=== PATIENT | female | born 1950 | race Caucasian/White ===

== ENCOUNTER → 2016-03-17 | Outpatient (CLI) | payer BC ==
[2016-03-17 07:45] LABS: ALT 46 U/L (9-52); AST 30 U/L (14-36); Alkaline Phosphatase 63 U/L (38-126); Anion Gap 9 mmol/L; Blood Urea Nitrogen 14 mg/dL (7-17); Calcium 9.4 mg/dL (8.4-10.2); Carbon Dioxide 27 mmol/L (22-30); Chloride 103 mmol/L (98-107); Cholesterol 182 mg/dL (<200); Creatine Kinase 38 U/L (30-135); Glucose 93 mg/dL (74-99); HDL Cholesterol 59 mg/dL (40-60); Non-African American GFR(MDRD) >60 (>60 ml/min/1.73 sqM); Potassium 4.4 mmol/L (3.5-5.1); Sodium 139 mmol/L (137-145); Total Bilirubin 0.9 mg/dL (0.2-1.3); Total Protein 7.3 g/dL (6.3-8.2); Triglycerides 114 mg/dL (<150)
[2016-03-17 07:56] LABS: Basophils % (A) 1 %; CH 30.9; CHCM 32.4; Eosinophils # (A) 0.1 k/uL (0-0.7); Eosinophils % (A) 1 %; HCT 40.7 % (34.0-46.0); HDW 1.94; HGB 12.9 gm/dL (11.4-16.0); Luc # (Auto) 0.15; Luc % (Auto) 3; Lymphocytes # (A) 1.7 k/uL (1.0-4.8); Lymphocytes % (A) 37 %; MCH 30.4 pg (25.0-35.0); MCHC 31.7 g/dL (31.0-37.0); MCV 95.8 fL (80.0-100.0); Mean Platelet Volume 7.3; Monocytes # (A) 0.3 k/uL (0-1.0); Monocytes % (A) 7 %; Neutrophils # (A) 2.3 k/uL (1.3-7.7); Neutrophils % (A) 51 %; RBC 4.25 m/uL (3.80-5.40); RDW 12.8 % (11.5-15.5); WBC 4.5 k/uL (3.8-10.6); WBC (Perox) 4.86
[2016-03-17 08:03] LABS: Appearance,Urine Clear (Clear); Bacteria,Urine Rare /hpf; Bilirubin,Urine Negative (Negative); Glucose,Urine (UA) Negative (Negative); Ketones,Urine Negative (Negative); Leukocyte Esterase,Urine Large (Negative); Nitrite,Urine Negative (Negative); PH, Urine 7.5 (5.0-8.0); Particle Count 2453; Protein,Urine Negative (Negative); Specific Gravity,Urine 1.011 (1.001-1.035); Squamous Epithelial Cell,Urine 1 /hpf (0-4); UA Billing (MACRO vs. MICRO) MICRO; Urobilinogen,Urine <2.0 mg/dL (<2.0); WBC,Urine 14 /hpf (0-5)
[2016-03-17 08:22] LABS: Hemoglobin A1C 5.3 % (4.2-6.1)
== END | disposition home or self-care (01) ==
LOC: LABWHC1 06:51
PROVIDERS: ATTEND Internal Medicine
DX: E55.9 Vitamin D deficiency, unspecified (principal); I10 Essential (primary) hypertension; E78.5 Hyperlipidemia, unspecified; R79.9 Abnormal finding of blood chemistry, unspecified; E03.9 Hypothyroidism, unspecified; R35.0 Frequency of micturition
CPT/HCPCS: 36415; 80053; 80061; 81001; 82306; 82550; 83036; 84439; 84443; 85025

== ENCOUNTER → 2016-04-12 | Outpatient (CLI) | payer BC ==
--- NOTE | 2016-04-12 11:03 | XR ---
EXAMINATION TYPE: XR chest 2V DATE OF EXAM: 04/12/2016 10:39 AM COMPARISON: 07/26/2013 TECHNIQUE: PA and lateral views submitted. HISTORY: Cough FINDINGS: The lungs are clear and there is no pneumothorax, pleural effusion, or focal pneumonia. Hypertrophic and degenerative change of the spine. IMPRESSION: 1. No acute process.
== END | disposition home or self-care (01) ==
LOC: RADXRMAIN 10:29
PROVIDERS: ATTEND Internal Medicine
DX: R05 Cough (principal)
CPT/HCPCS: 71020

== ENCOUNTER → 2016-09-09 | Outpatient (CLI) | payer MEDICARE ==
[2016-09-09 07:57] LABS: Appearance,Urine Clear (Clear); Bilirubin,Urine Negative (Negative); Glucose,Urine (UA) Negative (Negative); Ketones,Urine Negative (Negative); Leukocyte Esterase,Urine Large (Negative); Nitrite,Urine Negative (Negative); PH, Urine 7.5 (5.0-8.0); Particle Count 1636; Protein,Urine Negative (Negative); RBC,Urine 1 /hpf (0-5); Specific Gravity,Urine 1.008 (1.001-1.035); Squamous Epithelial Cell,Urine <1 /hpf (0-4); UA Billing (MACRO vs. MICRO) MICRO; Urobilinogen,Urine <2.0 mg/dL (<2.0); WBC,Urine 21 /hpf (0-5)
[2016-09-09 07:59] LABS: Basophils # (A) 0.1 k/uL (0-0.2); Basophils % (A) 1 %; CH 31.2; CHCM 32.9; Eosinophils # (A) 0.1 k/uL (0-0.7); Eosinophils % (A) 1 %; HCT 39.3 % (34.0-46.0); HDW 1.98; Luc # (Auto) 0.17; Luc % (Auto) 3; Lymphocytes # (A) 1.9 k/uL (1.0-4.8); Lymphocytes % (A) 34 %; MCH 31.7 pg (25.0-35.0); MCHC 33.2 g/dL (31.0-37.0); MCV 95.4 fL (80.0-100.0); Mean Platelet Volume 7.6; Monocytes # (A) 0.4 k/uL (0-1.0); Monocytes % (A) 8 %; Neutrophils % (A) 53 %; RBC 4.12 m/uL (3.80-5.40); RDW 13.3 % (11.5-15.5); WBC 5.6 k/uL (3.8-10.6)
[2016-09-09 08:24] LABS: ALT 45 U/L (9-52); AST 30 U/L (14-36); Alkaline Phosphatase 58 U/L (38-126); Anion Gap 8 mmol/L; Blood Urea Nitrogen 14 mg/dL (7-17); Calcium 9.3 mg/dL (8.4-10.2); Carbon Dioxide 29 mmol/L (22-30); Chloride 101 mmol/L (98-107); Cholesterol 173 mg/dL (<200); Creatine Kinase 58 U/L (30-135); Glucose 81 mg/dL (74-99); HDL Cholesterol 52 mg/dL (40-60); Non-African American GFR(MDRD) >60 (>60 ml/min/1.73 sqM); Potassium 4.3 mmol/L (3.5-5.1); Sodium 138 mmol/L (137-145); Total Bilirubin 0.7 mg/dL (0.2-1.3); Total Protein 6.9 g/dL (6.3-8.2); Triglycerides 122 mg/dL (<150); Uric Acid 5.2 mg/dL (3.7-7.4)
[2016-09-09 11:18] LABS: Hemoglobin A1C 5.5 % (4.2-6.1)
== END | disposition home or self-care (01) ==
LOC: LABWHC1 06:38
PROVIDERS: ATTEND Internal Medicine
DX: E78.00 Pure hypercholesterolemia, unspecified (principal); E16.1 Other hypoglycemia; E03.9 Hypothyroidism, unspecified; I10 Essential (primary) hypertension; M89.9 Disorder of bone, unspecified
CPT/HCPCS: 36415; 80053; 80061; 81001; 82306; 82550; 83036; 84439; 84443; 84550; 85025

== ENCOUNTER → 2016-12-27 | Outpatient (CLI) | payer MEDICARE ==
--- NOTE | 2016-12-28 07:28 | MM ---
Reason for exam: screening (asymptomatic). Last mammogram was performed 1 year ago. History: Patient is postmenopausal. Family history of premenopausal breast cancer in paternal aunt at age 40. 2 cyst aspirations of the right breast. Physical Findings: A clinical breast exam by your physician is recommended on an annual basis and results should be correlated with mammographic findings. MG 3D Screening Mammo W/Cad Bilateral CC and MLO view(s) were taken. Prior study comparison: December 22, 2015, bilateral MG screening mammo w CAD. December 19, 2014, bilateral MG screening mammo w CAD. There are scattered fibroglandular densities. No significant changes when compared with prior studies. ASSESSMENT: Negative, BI-RAD 1 RECOMMENDATION: Routine screening mammogram of both breasts in 1 year.
== END | disposition home or self-care (01) ==
LOC: RADMAMWWP 07:44
PROVIDERS: ATTEND Obstetrics & Gynecology
DX: Z12.31 Encounter for screening mammogram for malignant neoplasm of breast (principal)
CPT/HCPCS: 77063; G0202

== ENCOUNTER → 2017-03-04 | Outpatient (CLI) | payer MEDICARE ==
[2017-03-04 07:41] LABS: ALT 48 U/L (9-52); AST 36 U/L (14-36); Alkaline Phosphatase 58 U/L (38-126); Anion Gap 9 mmol/L; Blood Urea Nitrogen 20 mg/dL (7-17); Calcium 9.6 mg/dL (8.4-10.2); Carbon Dioxide 28 mmol/L (22-30); Chloride 101 mmol/L (98-107); Cholesterol 160 mg/dL (<200); Creatine Kinase 50 U/L (30-135); Glucose 91 mg/dL (74-99); HDL Cholesterol 56 mg/dL (40-60); LDL Cholesterol,Calculated 74 mg/dL (0-99); Potassium 4.5 mmol/L (3.5-5.1); Sodium 138 mmol/L (137-145); Total Bilirubin 0.6 mg/dL (0.2-1.3); Total Protein 6.7 g/dL (6.3-8.2); Triglycerides 149 mg/dL (<150)
[2017-03-04 07:45] LABS: Basophils # (A) 0.1 k/uL (0-0.2); Basophils % (A) 1 %; Eosinophils # (A) 0.1 k/uL (0-0.7); Eosinophils % (A) 2 %; HCT 39.4 % (34.0-46.0); HGB 12.8 gm/dL (11.4-16.0); Lymphocytes # (A) 2.1 k/uL (1.0-4.8); Lymphocytes % (A) 39 %; MCH 30.9 pg (25.0-35.0); MCHC 32.5 g/dL (31.0-37.0); Mean Platelet Volume 7.2; Monocytes # (A) 0.4 k/uL (0-1.0); Monocytes % (A) 7 %; Neutrophils # (A) 2.6 k/uL (1.3-7.7); Neutrophils % (A) 49 %; Platelet Count 233 k/uL (150-450); RBC 4.14 m/uL (3.80-5.40); RDW 12.8 % (11.5-15.5); WBC 5.3 k/uL (3.8-10.6)
[2017-03-04 07:54] LABS: T4, Free (Free Thyroxine) 1.07 ng/dL (0.78-2.19)
[2017-03-04 08:32] LABS: Appearance,Urine Clear (Clear); Bilirubin,Urine Negative (Negative); Blood,Urine Trace (Negative); Color,Urine Yellow; Glucose,Urine (UA) Negative (Negative); Ketones,Urine Negative (Negative); Leukocyte Esterase,Urine Large (Negative); Mucus,Urine Rare /hpf; Nitrite,Urine Negative (Negative); Protein,Urine Negative (Negative); RBC,Urine 1 /hpf (0-5); Squamous Epithelial Cell,Urine 1 /hpf (0-4); Urobilinogen,Urine <2.0 mg/dL (<2.0); WBC,Urine 11 /hpf (0-5)
[2017-03-04 19:02] LABS: Hemoglobin A1C 5.3 % (4.0-6.0)
== END | disposition home or self-care (01) ==
LOC: LABWHC1 06:51
PROVIDERS: ATTEND Internal Medicine
DX: I10 Essential (primary) hypertension (principal); R79.9 Abnormal finding of blood chemistry, unspecified; E78.00 Pure hypercholesterolemia, unspecified; R35.0 Frequency of micturition
CPT/HCPCS: 36415; 80053; 80061; 81001; 82550; 83036; 84439; 84443; 85025

== ENCOUNTER → 2017-09-08 | Outpatient (CLI) | payer MEDICARE ==
[2017-09-08 07:24] LABS: Basophils # (A) 0.1 k/uL (0-0.2); Basophils % (A) 1 %; Eosinophils # (A) 0.1 k/uL (0-0.7); Eosinophils % (A) 1 %; HCT 39.9 % (34.0-46.0); HGB 12.9 gm/dL (11.4-16.0); Lymphocytes % (A) 41 %; MCH 30.5 pg (25.0-35.0); MCHC 32.2 g/dL (31.0-37.0); MCV 94.6 fL (80.0-100.0); Mean Platelet Volume 7.1; Monocytes # (A) 0.4 k/uL (0-1.0); Monocytes % (A) 7 %; Neutrophils # (A) 2.3 k/uL (1.3-7.7); Neutrophils % (A) 46 %; Platelet Count 208 k/uL (150-450); RBC 4.22 m/uL (3.80-5.40); RDW 13.2 % (11.5-15.5); WBC 4.9 k/uL (3.8-10.6)
[2017-09-08 07:29] LABS: Appearance,Urine Clear (Clear); Bilirubin,Urine Negative (Negative); Blood,Urine Trace (Negative); Color,Urine Light Yellow; Glucose,Urine (UA) Negative (Negative); Ketones,Urine Negative (Negative); Leukocyte Esterase,Urine Large (Negative); Nitrite,Urine Negative (Negative); PH, Urine 7.5 (5.0-8.0); Protein,Urine Negative (Negative); RBC,Urine 1 /hpf (0-5); Specific Gravity,Urine 1.006 (1.001-1.035); Squamous Epithelial Cell,Urine 1 /hpf (0-4); Urobilinogen,Urine <2.0 mg/dL (<2.0); WBC,Urine 9 /hpf (0-5)
[2017-09-08 07:42] LABS: ALT 41 U/L (9-52); AST 35 U/L (14-36); Albumin 4.2 g/dL (3.5-5.0); Alkaline Phosphatase 50 U/L (38-126); Anion Gap 8 mmol/L; Blood Urea Nitrogen 14 mg/dL (7-17); Calcium 9.5 mg/dL (8.4-10.2); Carbon Dioxide 27 mmol/L (22-30); Chloride 102 mmol/L (98-107); Cholesterol 186 mg/dL (<200); Creatine Kinase 60 U/L (30-135); Glucose 87 mg/dL (74-99); HDL Cholesterol 51 mg/dL (40-60); LDL Cholesterol,Calculated 105 mg/dL (0-99); Potassium 4.6 mmol/L (3.5-5.1); Sodium 137 mmol/L (137-145); Total Bilirubin 0.7 mg/dL (0.2-1.3); Total Protein 6.8 g/dL (6.3-8.2); Triglycerides 149 mg/dL (<150)
[2017-09-08 07:48] LABS: T4, Free (Free Thyroxine) 1.17 ng/dL (0.78-2.19)
[2017-09-08 15:22] LABS: Hemoglobin A1C 5.4 % (4.0-6.0)
== END | disposition home or self-care (01) ==
LOC: LABWHC1 06:39
PROVIDERS: ATTEND Internal Medicine
DX: E78.5 Hyperlipidemia, unspecified (principal); E03.9 Hypothyroidism, unspecified; I10 Essential (primary) hypertension; R79.9 Abnormal finding of blood chemistry, unspecified; R31.29 Other microscopic hematuria
CPT/HCPCS: 36415; 80053; 80061; 81001; 82550; 83036; 84439; 84443; 85025

== ENCOUNTER → 2018-01-03 | Outpatient (CLI) | payer MEDICARE ==
--- NOTE | 2018-01-09 09:47 | MM ---
Reason for exam: screening (asymptomatic). Last mammogram was performed 1 year ago. History: Patient is postmenopausal. Family history of premenopausal breast cancer in paternal aunt at age 40. 2 cyst aspirations of the right breast. Physical Findings: A clinical breast exam by your physician is recommended on an annual basis and results should be correlated with mammographic findings. MG 3D Screening Mammo W/Cad Bilateral CC and MLO view(s) were taken. Prior study comparison: December 27, 2016, bilateral MG 3d screening mammo w/cad. December 22, 2015, bilateral MG screening mammo w CAD. The breast tissue is heterogeneously dense. This may lower the sensitivity of mammography. No significant changes when compared with prior studies. ASSESSMENT: Benign, BI-RAD 2 RECOMMENDATION: Routine screening mammogram of both breasts in 1 year.
== END | disposition home or self-care (01) ==
LOC: RADMAMWWP 07:15
PROVIDERS: ATTEND Obstetrics & Gynecology
DX: Z12.31 Encounter for screening mammogram for malignant neoplasm of breast (principal)
CPT/HCPCS: 77063; 77067

== ENCOUNTER → 2018-01-17 | Outpatient (CLI) | payer MEDICARE ==
[2018-01-17 14:24] LABS: Blood Urea Nitrogen 16 mg/dL (7-17)
--- NOTE | 2018-01-17 15:51 | CT ---
EXAMINATION TYPE: CT abdomen pelvis w con DATE OF EXAM: 01/17/2018 COMPARISON: None HISTORY: abdominal pain, distention, change in bowel habits X [address] DLP: 575.6 mGycm CONTRAST: CT scan of the abdomen and pelvis is performed with Oral Contrast and with IV Contrast, patient injec sania with 100 mL of Isovue 300. FINDINGS: LUNG BASES-: No visible nodule. No infiltrate. Left basilar linear atelectasis. LIVER/GB: No calcified gallstones. No space occupying hepatic lesion. Biliary tree is of normal ca liber. PANCREAS: No inflammation. No distinct mass. SPLEEN: No splenic enlargement. No lesion seen. ADRENALS: No nodule. No thickening. KIDNEYS/BLADDER: No hydronephrosis. No nephrolithiasis. No distinct renal mass. Urinary bladder g rossly unremarkable. BOWEL: Normal appendix. Normal bowel caliber. No inflammation. GENITAL ORGANS: No gross abnormality. LYMPH NODES: No greater than 1cm abdominal or pelvic lymph nodes are appreciated. AORTA: No significant abnormality. OSSEOUS STRUCTURES: No significant abnormality is seen. OTHER: No significant additional abnormality is seen. IMPRESSION: 1. No significant abnormality to account for the patient's symptoms.
== END | disposition home or self-care (01) ==
LOC: RADCTMAIN 13:38
PROVIDERS: ATTEND Internal Medicine
DX: R10.9 Unspecified abdominal pain (principal)
CPT/HCPCS: 82565; 84520; 74177; 36415; Q9967

== ENCOUNTER → 2018-03-17 | Outpatient (CLI) | payer MEDICARE ==
[2018-03-17 07:28] LABS: Basophils % (A) 1 %; Eosinophils # (A) 0.1 k/uL (0-0.7); Eosinophils % (A) 2 %; HCT 40.5 % (34.0-46.0); Lymphocytes % (A) 40 %; MCH 30.5 pg (25.0-35.0); MCV 95.4 fL (80.0-100.0); Mean Platelet Volume 6.9; Monocytes # (A) 0.3 k/uL (0-1.0); Monocytes % (A) 7 %; Neutrophils # (A) 2.3 k/uL (1.3-7.7); Neutrophils % (A) 47 %; Platelet Count 223 k/uL (150-450); RBC 4.25 m/uL (3.80-5.40); RDW 13.2 % (11.5-15.5)
[2018-03-17 13:48] LABS: Albumin 4.2 g/dL (3.80-4.90); Albumin/Globulin Ratio 1.91 (1.60-3.17); Anion Gap 7.7 mmol/L (4.00-12.00); Calcium 9.5 mg/dL (8.7-10.3); Carbon Dioxide 28.3 mmol/L (21.6-31.8); Globulin 2.2 g/dL (1.6-3.3); LDL Cholesterol,Calculated 96.2 mg/dL (0.0-131.0); Potassium 4.4 mmol/L (3.5-5.5); Total Bilirubin 0.7 mg/dL (0.3-1.2); Total Protein 6.4 g/dL (6.2-8.2); VLDL Calculation 25.8 mg/dL (5.00-40.00)
[2018-03-17 17:56] LABS: Hemoglobin A1C 5.4 % (4.0-6.0)
== END | disposition home or self-care (01) ==
LOC: LABWHC1 06:41
PROVIDERS: ATTEND Internal Medicine
DX: E78.5 Hyperlipidemia, unspecified (principal); E03.9 Hypothyroidism, unspecified; I10 Essential (primary) hypertension; R73.01 Impaired fasting glucose
CPT/HCPCS: 36415; 80053; 80061; 82550; 83036; 84443; 85025

== ENCOUNTER → 2018-09-27 | Outpatient (CLI) | payer MEDICARE ==
[2018-09-27 07:23] LABS: Basophils % (A) 1 %; Eosinophils # (A) 0.1 k/uL (0-0.7); Eosinophils % (A) 1 %; HCT 40.7 % (34.0-46.0); HGB 13.1 gm/dL (11.4-16.0); Lymphocytes # (A) 2.3 k/uL (1.0-4.8); Lymphocytes % (A) 44 %; MCHC 32.3 g/dL (31.0-37.0); MCV 95.9 fL (80.0-100.0); Mean Platelet Volume 7.4; Monocytes # (A) 0.4 k/uL (0-1.0); Monocytes % (A) 7 %; Neutrophils # (A) 2.4 k/uL (1.3-7.7); Neutrophils % (A) 45 %; Platelet Count 230 k/uL (150-450); RBC 4.25 m/uL (3.80-5.40); WBC 5.2 k/uL (3.8-10.6)
[2018-09-27 07:35] LABS: Appearance,Urine Clear (Clear); Bilirubin,Urine Negative (Negative); Blood,Urine Trace (Negative); Color,Urine Light Yellow; Glucose,Urine (UA) Negative (Negative); Ketones,Urine Negative (Negative); Leukocyte Esterase,Urine Large (Negative); Mucus,Urine Rare /hpf; Nitrite,Urine Negative (Negative); PH, Urine 7.5 (5.0-8.0); Protein,Urine Negative (Negative); RBC,Urine 5 /hpf (0-5); Specific Gravity,Urine 1.009 (1.001-1.035); Squamous Epithelial Cell,Urine <1 /hpf (0-4); Urobilinogen,Urine <2.0 mg/dL (<2.0); WBC,Urine 41 /hpf (0-5)
[2018-09-27 11:03] LABS: African American GFR (CKD) 88.4 (60.0-200.0); Albumin 4.1 g/dL (3.80-4.90); Albumin/Globulin Ratio 1.95 (1.60-3.17); Anion Gap 9.4 mmol/L (4.00-12.00); BUN/Creat Ratio 21.25 Ratio (12.00-20.00); Calcium 9.4 mg/dL (8.7-10.3); Carbon Dioxide 27.6 mmol/L (21.6-31.8); Globulin 2.1 g/dL (1.6-3.3); Potassium 4.2 mmol/L (3.5-5.5); Total Bilirubin 0.8 mg/dL (0.2-1.2); Total Protein 6.2 g/dL (6.2-8.2)
[2018-09-27 11:09] LABS: T4, Free (Free Thyroxine) 1.2 ng/dL (0.80-1.80)
[2018-09-27 15:26] LABS: Hemoglobin A1C 5.5 % (4.0-6.0)
== END | disposition home or self-care (01) ==
LOC: LABWHC1 06:43
PROVIDERS: ATTEND Nurse Practitioner Family
DX: Z00.00 Encounter for general adult medical examination without abnormal findings (principal); I10 Essential (primary) hypertension; R79.9 Abnormal finding of blood chemistry, unspecified; E03.9 Hypothyroidism, unspecified; E55.9 Vitamin D deficiency, unspecified
CPT/HCPCS: 36415; 80053; 80061; 81001; 82306; 83036; 84439; 84443; 85025

== ENCOUNTER 2018-10-31 04:32 | Emergency (ER) | payer MEDICARE ==
[2018-10-31 04:44] VITALS: TEMP 98.4
--- NOTE | 2018-10-31 04:47 | ED ---
General Adult HPI - General Chief complaint: Headache Stated complaint: High Blood Pressure Time Seen by Provider: 10/31/18 04:46 Source: patient, family Mode of arrival: ambulatory Limitations: no limitations - History of Present Illness Initial comments: Nanette is a pleasant 68-year-old female who presents to the emergency department today for evaluation of headache and high blood pressure. Patient reports that she woke from sleep this morning and could hear a wound sheet sound in her left ear, patient states this has happened one time before. She states when this happened before she checked her blood pressure was very elevated. Patient states when she got up today she checked her blood pressure and it was greater than 180/110, she took a Xanax and her synthroid but then became anxious about her blood pressure and decided to come to the ER for evaluation while she was having symptoms. Upon evaluation patient's blood pressure is improving and she is no longer having symptoms. She denies having every had headache, vision change, focal ne urologic deficit. - Related Data Home Medications Medication Instructions Recorded Confirmed ALPRAZolam [Xanax] 0.25 mg PO Q8HR PRN 07/28/15 10/31/18 Ca/D3/Mag/Zinc/Thalia/Christian/Mgbor 1 tab PO HS 07/28/15 10/31/18 [Caltrate 600+D3+Min Chew Tab] Losartan Potassium [Cozaar] 25 mg PO DAILY 07/28/15 10/31/18 Metoprolol Succinate (ER) [Toprol 50 mg PO BID 07/28/15 10/31/18 Xl] Multivitamins, Thera [Multivitamin] 1 tab PO DAILY@1200 07/28/15 10/31/18 [place]-3 Fatty Acids/Fish Oil [Fish 1 cap PO DAILY 07/28/15 10/31/18 Oil 1,000 mg Softgel] Omeprazole [PriLOSEC] 20 mg PO AC-BRKFST 07/28/15 10/31/18 Simvastatin [Zocor] 80 mg PO HS 07/28/15 10/31/18 Levothyroxine Sodium [Synthroid] 50 mcg PO DAILY 10/31/18 10/31/18 Allergies Allergy/AdvReac Type Severity Reaction Status Date / Time budesonide [From Symbicort] Allergy Rash/Hives Verified 10/31/18 08:05 formoterol fumarate Allergy Rash/Hives Verified 10/31/18 08:05 [From Ancanco] Review of Systems ROS Statement: Those systems with pertinent positive or pertinent negative responses have been documented in the HPI. ROS Other: All systems not noted in ROS Statement are negative. Past Medical History Past Medical History: Hyperlipidemia, Hypertension, Thyroid Disorder History of Any Multi-Drug Resistant Organisms: None Reported Past Surgical History: Appendectomy, Section, Orthopedic Surgery, Tonsillectomy Additional Past Surgical History / Comment(s): vein stripping Past Psychological History: Anxiety, Panic Disorder Smoking Status: Never smoker Past Alcohol Use History: Daily Past Drug Use History: None Reported General Exam - General Exam Comments Initial Comments: Physical Exam GENERAL: Patient is well-developed and well-nourished. Patient is nontoxic and well-hydrated and is in no distress. HENT: Normocephalic, Atraumatic. No carotid bruit EYES: PERRL, EOMI PULMONARY: Unlabored respirations. No audible rales rhonchi or wheezing was noted. CARDIOVASCULAR: There is a regular rate and rhythm without any murmurs gallops or rubs. ABDOMEN: Soft and nontender with normal bowel sounds. SKIN: Skin is clear with no lesions or rashes and otherwise unremarkable. : Deferred NEUROLOGIC: Cranial nerves II - XII grossly intact Patient is alert and oriented x3. Moving all extremities spontaneously MUSCULOSKELETAL: Normal extremities with adequate strength and full range of motion. No lower extremity swelling or edema. No calf tenderness. PSYCHIATRIC: Normal psychiatric evaluation. Limitations: no limitations Course Vital Signs 10/31/18 10/31/18 04:39 05:06 Temperature 98.4 F Pulse Rate 77 69 Respiratory 20 18 Rate Blood Pressure 182/96 172/94 O2 Sat by Pulse 97 96 Oximetry Medical Decision Making - Medical Decision Making She was seen and evaluated history was obtained from the patient Patient presenting with hypertension ability to hear her pulse in her left ear The patient has no neurologic deficits and resolution of symptoms a CTA will be obtained to evaluate for any signs of aneurysm Home dose of metoprolol was ordered for hypertension Labs unremarkable CTA of the head and neck was unremarkable aneurysmorstenosis Pressure normalized after her home dose of metoprolol. At this time the patient remained a symptomatically stable for discharge home with outpatient follow-up. Encouraged patient to follow up with her primary care physician to discuss the dosing of her antihypertensives that she seems to be hypertensive in the early mornings. All questions pertaining care were answered return parameters discussed patient discharged home in stable condition. - Lab Data Result diagrams: 10/31/18 05:37 10/31/18 05:37 Lab Results 10/31/18 10/31/18 Range/Units 05:37 05:37 WBC 5.4 (3.8-10.6) k/uL RBC 4.19 (3.80-5.40) m/uL Hgb 13.2 (11.4-16.0) gm/dL Hct 39.0 (34.0-46.0) % MCV 92.9 (80.0-100.0) fL MCH 31.4 (25.0-35.0) pg MCHC 33.8 (31.0-37.0) g/dL RDW 14.4 (11.5-15.5) % Plt Count 232 (150-450) k/uL Neutrophils % 46 % Lymphocytes % 42 % Monocytes % 7 % Eosinophils % 2 % Basophils % 1 % Neutrophils # 2.5 (1.3-7.7) k/uL Lymphocytes # 2.2 (1.0-4.8) k/uL Monocytes # 0.4 (0-1.0) k/uL Eosinophils # 0.1 (0-0.7) k/uL Basophils # 0.1 (0-0.2) k/uL Sodium 137 (137-145) mmol/L Potassium 4.1 (3.5-5.1) mmol/L Chloride 102 (98-107) mmol/L Carbon Dioxide 27 (22-30) mmol/L Anion Gap 8 mmol/L BUN 16 (7-17) mg/dL Creatinine 0.63 (0.52-1.04) mg/dL Est GFR (CKD-EPI)AfAm >90 (>60 ml/min/1.73 sqM) Est GFR (CKD-EPI)NonAf >90 (>60 ml/min/1.73 sqM) Glucose 99 (74-99) mg/dL Calcium 9.5 (8.4-10.2) mg/dL Disposition Clinical Impression: Hypertension Disposition: HOME SELF-CARE Condition: Stable Instructions (If sedation given, give patient instructions): Hypertension (ED) Is patient prescribed a controlled substance at d/c from ED?: No Referrals: William Hirsch MD [Primary Care Provider] - 1-2 days
[2018-10-31 05:07] VITALS: BP 172/94; PULSE 69; RESP 18
[2018-10-31] MEDS ORDERED: SODIUM CHLORIDE 0.9% 1,000 ML IV ONE (05:33)
[2018-10-31] MEDS ORDERED: METOPROLOL SUCCINATE (ER) 50 MG TAB.ER.24H PO STA (05:33)
[2018-10-31 05:46] LABS: Basophils # (A) 0.1 k/uL (0-0.2); Basophils % (A) 1 %; Eosinophils # (A) 0.1 k/uL (0-0.7); Eosinophils % (A) 2 %; HGB 13.2 gm/dL (11.4-16.0); Lymphocytes # (A) 2.2 k/uL (1.0-4.8); Lymphocytes % (A) 42 %; MCH 31.4 pg (25.0-35.0); MCHC 33.8 g/dL (31.0-37.0); MCV 92.9 fL (80.0-100.0); Mean Platelet Volume 7.5; Monocytes # (A) 0.4 k/uL (0-1.0); Monocytes % (A) 7 %; Neutrophils # (A) 2.5 k/uL (1.3-7.7); Neutrophils % (A) 46 %; Platelet Count 232 k/uL (150-450); RBC 4.19 m/uL (3.80-5.40); RDW 14.4 % (11.5-15.5); WBC 5.4 k/uL (3.8-10.6)
[2018-10-31 06:00] LABS: African American GFR (CKD) >90 (>60 ml/min/1.73 sqM); Anion Gap 8 mmol/L; Blood Urea Nitrogen 16 mg/dL (7-17); Calcium 9.5 mg/dL (8.4-10.2); Carbon Dioxide 27 mmol/L (22-30); Chloride 102 mmol/L (98-107); Glucose 99 mg/dL (74-99); Potassium 4.1 mmol/L (3.5-5.1); Sodium 137 mmol/L (137-145)
--- NOTE | 2018-10-31 07:38 | CT ---
EXAMINATION TYPE: CT angio head neck CT head without DATE OF EXAM: 10/31/2018 HISTORY: Headache with pulsatile tinnitus, extreme hypertension. COMPARISON: NONE CT DLP: 1379.9 mGycm. Automated Exposure Control for Dose Reduction was Utilized. TECHNIQUE: CTA scan of the head and neck are performed without and with IV Contrast, patient injecte d with 65 mL of Isovue 370, axial images are obtained, coronal and sagittal reformatted images are re viewed. Three-D reconstructed images are created on an independent workstation and reviewed. Noncontr ast CT of the head is first performed. FINDINGS: Noncontrast CT shows no acute intracranial hemorrhage or midline shift. Mild ventricular and sulcal p rominence is seen. Globes are intact and visualized sinuses are clear. Carotid/Vascular Structures: Three-vessel origin from aortic arch. There is slight tortuous course to the right common and internal carotid artery. There is no significant plaque or stenosis seen. There is a patent right external carotid artery without significant stenosis. There is mild eccentric plaque in left carotid bulb extending into proximal internal carotid artery w ithout significant stenosis. Tortuous course to right internal carotid artery is seen distal to this. There is patent left external carotid artery without significant stenosis. Left common carotid arter y shows no significant plaque or stenosis. There is dominant left vertebral artery. There is mild calcified plaque distal aspect. Vertebral sepideh teofilo are patent to basilar junction. There are hypoplastic bilateral posterior communicating arteries . There is no significant focal stenosis or aneurysmal change in the posterior circulation. Small caliber right A1 segment is seen with filling of right A2 segment due to patent anterior commun icating artery. No significant stenosis or an small change is present. Other: No additional significant finding is seen. IMPRESSION: No significant stenosis in common or internal carotid arteries bilaterally. No aneurysma l change at the level of the [place].
== END 2018-10-31 08:19 | disposition home or self-care (01) ==
LOC: EC 04:32
DX: I10 Essential (primary) hypertension (principal); E78.5 Hyperlipidemia, unspecified; E07.9 Disorder of thyroid, unspecified; Z88.8 Allergy status to other drugs, medicaments and biological substances; Z79.890 Hormone replacement therapy; Z79.899 Other long term (current) drug therapy
CPT/HCPCS: 99284; 96360; 36415; 80048; 85025; 70496; 70498; Q9967

== ENCOUNTER 2018-11-17 11:34 | Emergency (ER) | payer MEDICARE ==
[2018-11-17 11:39] VITALS: TEMP 97.6
[2018-11-17 12:12] VITALS: RESP 18
[2018-11-17 12:37] LABS: Basophils % (A) 0 %; Eosinophils # (A) 0.1 k/uL (0-0.7); Eosinophils % (A) 1 %; HCT 39.5 % (34.0-46.0); HGB 13.4 gm/dL (11.4-16.0); Lymphocytes # (A) 2.2 k/uL (1.0-4.8); Lymphocytes % (A) 33 %; MCH 31.8 pg (25.0-35.0); MCV 93.3 fL (80.0-100.0); Mean Platelet Volume 6.2; Monocytes # (A) 0.4 k/uL (0-1.0); Monocytes % (A) 7 %; Neutrophils # (A) 3.6 k/uL (1.3-7.7); Neutrophils % (A) 55 %; Platelet Count 214 k/uL (150-450); RBC 4.23 m/uL (3.80-5.40); RDW 12.5 % (11.5-15.5); WBC 6.6 k/uL (3.8-10.6)
[2018-11-17 12:48] LABS: INR 0.9 (<1.2); Partial Thromboplastin Time 22.8 sec (22.0-30.0); Prothrombin Time 9.9 sec (9.0-12.0)
[2018-11-17 12:56] LABS: ALT 41 U/L (9-52); AST 36 U/L (14-36); African American GFR (CKD) >90 (>60 ml/min/1.73 sqM); Albumin 4.5 g/dL (3.5-5.0); Alkaline Phosphatase 79 U/L (38-126); Anion Gap 12 mmol/L; Blood Urea Nitrogen 14 mg/dL (7-17); Calcium 9.8 mg/dL (8.4-10.2); Carbon Dioxide 22 mmol/L (22-30); Chloride 100 mmol/L (98-107); Glucose 109 mg/dL (74-99); Magnesium 1.8 mg/dL (1.6-2.3); Non-African American GFR(CKD) >90 (>60 ml/min/1.73 sqM); Potassium 4.1 mmol/L (3.5-5.1); Sodium 134 mmol/L (137-145); Total Bilirubin 0.5 mg/dL (0.2-1.3); Total Protein 7.6 g/dL (6.3-8.2)
--- NOTE | 2018-11-17 13:02 | XR ---
EXAMINATION TYPE: XR chest 1V portable DATE OF EXAM: 11/17/2018 COMPARISON: 04/12/2016 HISTORY: Chest pain and palpitations TECHNIQUE: Single frontal view of the chest is obtained. FINDINGS: There is no focal air space opacity, pleural effusion, or pneumothorax seen. Minimal left basilar subsegmental atelectasis is linear. The cardiac silhouette size is within normal limits. T he osseous structures are intact. IMPRESSION: Minimal left basilar subsegmental atelectasis otherwise no acute cardiopulmonary process .
[2018-11-17] MEDS ORDERED: LABETALOL 5 MG/ML VIAL MDV IVP STA (13:18)
--- NOTE | 2018-11-17 13:23 | ED ---
General Adult HPI - General Chief complaint: Arrhythmia/Palpitations Stated complaint: palpitations Time Seen by Provider: 11/17/18 11:44 Source: patient, family Mode of arrival: wheelchair Limitations: no limitations - History of Present Illness Initial comments: Dictation was produced using [employer] dictation software. please excuse any grammatical, word or spelling errors. Chief Complaint: 68-year-old female presents with elevated blood pressure. History of Present Illness: Patient is a 68-year-old female presents with elevated blood pressure. Patient states over the last 6 weeks she's been having blood pressure issues. Patient has been worked up for a blood pressure past. She is being followed by her primary care physician for blood pressure. Patient initially found out that her blood pressure is high because she wouldn't notice a whooshing sound in her right ear. Patient is been worked up for this abnormal whooshing sound. She had CT angios of the head performed 2 weeks ago. Patient is currently on 2 blood pressure medications. She is on metoprolol and losartan. She is instructed by her PCP to double up on her losartan of her blood pressure spikes. Patient has been feeling well today. Until afternoon while she was running some errands when she started to feel like the whooshing sound came back. She checked her blood pressure and was found to be elevated. Denies any chest pain. No strokelike symptoms. No neurologic deficits. The ROS documented in this emergency department record has been reviewed and confirmed by me. Those systems with pertinent positive or negative responses h ave been documented in the HPI. All other systems are other negative and/or noncontributory. PHYSICAL EXAM: General Impression: Alert and oriented x3, not in acute distress HEENT: Normocephalic atraumatic, extra-ocular movements intact, pupils equal and reactive to light bilaterally, mucous membranes moist. Cardiovascular: Heart regular rate and rhythm, S1&S2 audible, no murmurs, rubs or gallops Chest: Lungs clear to auscultation bilaterally, no rhonchi, no wheeze, no rales Abdomen: Bowel sounds present, abdomen soft, non-tender, non-distended, no organomegaly Musculoskeletal: Pulses present and equal in all extremities, no peripheral edema Motor: no focal deficits noted Neurological: CN II-XII grossly intact, no focal motor or sensory deficits noted Skin: Intact with no visualized rashes Psych: Normal affect and mood ED course: 68 y old female presents with elevated blood pressure. Patient checked her blood pressure at home was found to be elevated. Patient does not have any clinical symptoms to suggest hypertensive emergency. Vital signs upon arrival shows blood pressure 182/98, so vital signs within acceptable limits. Physical examination is benign. Patient is well-appearing.Laboratory evaluation obtained. CBC, coag panel, metabolic panel is unremarkable. Chest x-ray is negative. Patient reevaluated at bedside with improvement of blood pressure despite patient not getting antihypertensive medications. Patient told to follow up with primary care physician. Patient currently stable. Circulatory baseline. Temperature is discussed. Patient went for discharge. Clinical presentation consistent with asymptomatic hypertension. EKG interpretation: Ventricular rate 73, sinus rhythm,. Interval 196, QS 90, QTc 438. No MN prolongation, no QTC prolongation, no ST or T-wave changes noted. Overall, this EKG is unremarkable - Related Data Home Medications Medication Instructions Recorded Confirmed ALPRAZolam [Xanax] 0.25 mg PO Q8HR PRN 07/28/15 10/31/18 Ca/D3/Mag/Zinc/Thalia/Christian/Mgbor 1 tab PO HS 07/28/15 10/31/18 [Caltrate 600+D3+Min Chew Tab] Losartan Potassium [Cozaar] 25 mg PO DAILY 07/28/15 10/31/18 Metoprolol Succinate (ER) [Toprol 50 mg PO BID 07/28/15 10/31/18 Xl] Multivitamins, Thera [Multivitamin] 1 tab PO DAILY@1200 07/28/15 10/31/18 [place]-3 Fatty Acids/Fish Oil [Fish 1 cap PO DAILY 07/28/15 10/31/18 Oil 1,000 mg Softgel] Omeprazole [PriLOSEC] 20 mg PO AC-BRKFST 07/28/15 10/31/18 Simvastatin [Zocor] 80 mg PO HS 07/28/15 10/31/18 Levothyroxine Sodium [Synthroid] 50 mcg PO DAILY 10/31/18 10/31/18 Allergies Allergy/AdvReac Type Severity Reaction Status Date / Time budesonide [From Symbicort] Allergy Rash/Hives Verified 11/17/18 11:36 formoterol fumarate Allergy Rash/Hives Verified 11/17/18 11:36 [From Symbicort] Review of Systems ROS Statement: Those systems with pertinent positive or pertinent negative responses have been documented in the HPI. ROS Other: All systems not noted in ROS Statement are negative. Past Medical History Past Medical History: Hyperlipidemia, Hypertension, Thyroid Disorder History of Any Multi-Drug Resistant Organisms: None Reported Past Surgical History: Appendectomy, Section, Orthopedic Surgery, Tonsillectomy Additional Past Surgical History / Comment(s): vein stripping Past Psychological History: Anxiety, Panic Disorder Smoking Status: Never smoker Past Alcohol Use History: Daily Past Drug Use History: None Reported General Exam Limitations: no limitations Course Vital Signs 11/17/18 11/17/18 11/17/18 11:36 11:44 12:07 Temperature 97.6 F Pulse Rate 79 72 83 Respiratory 16 18 18 Rate Blood Pressure 182/98 175/90 185/130 O2 Sat by Pulse 99 100 100 Oximetry 11/17/18 13:39 Temperature Pulse Rate 74 Respiratory 18 Rate Blood Pressure 140/81 O2 Sat by Pulse 95 Oximetry Medical Decision Making - Lab Data Result diagrams: 11/17/18 12:20 11/17/18 12:20 Lab Results 11/17/18 11/17/18 11/17/18 Range/Units 12:20 12:20 12:20 WBC 6.6 (3.8-10.6) k/uL RBC 4.23 (3.80-5.40) m/uL Hgb 13.4 (11.4-16.0) gm/dL Hct 39.5 (34.0-46.0) % MCV 93.3 (80.0-100.0) fL MCH 31.8 (25.0-35.0) pg MCHC 34.0 (31.0-37.0) g/dL RDW 12.5 (11.5-15.5) % Plt Count 214 (150-450) k/uL Neutrophils % 55 % Lymphocytes % 33 % Monocytes % 7 % Eosinophils % 1 % Basophils % 0 % Neutrophils # 3.6 (1.3-7.7) k/uL Lymphocytes # 2.2 (1.0-4.8) k/uL Monocytes # 0.4 (0-1.0) k/uL Eosinophils # 0.1 (0-0.7) k/uL Basophils # 0.0 (0-0.2) k/uL PT 9.9 (9.0-12.0) sec INR 0.9 (<1.2) APTT 22.8 (22.0-30.0) sec Sodium 134 L (137-145) mmol/L Potassium 4.1 (3.5-5.1) mmol/L Chloride 100 (98-107) mmol/L Carbon Dioxide 22 (22-30) mmol/L Anion Gap 12 mmol/L BUN 14 (7-17) mg/dL Creatinine 0.64 (0.52-1.04) mg/dL Est GFR (CKD-EPI)AfAm >90 (>60 ml/min/1.73 sqM) Est GFR (CKD-EPI)NonAf >90 (>60 ml/min/1.73 sqM) Glucose 109 H (74-99) mg/dL Calcium 9.8 (8.4-10.2) mg/dL Magnesium 1.8 (1.6-2.3) mg/dL Total Bilirubin 0.5 (0.2-1.3) mg/dL AST 36 (14-36) U/L ALT 41 (9-52) U/L Alkaline Phosphatase 79 (38-126) U/L Troponin I (0.000-0.034) ng/mL Total Protein 7.6 (6.3-8.2) g/dL Albumin 4.5 (3.5-5.0) g/dL 11/17/18 Range/Units 12:20 WBC (3.8-10.6) k/uL RBC (3.80-5.40) m/uL Hgb (11.4-16.0) gm/dL Hct (34.0-46.0) % MCV (80.0-100.0) fL MCH (25.0-35.0) pg MCHC (31.0-37.0) g/dL RDW (11.5-15.5) % Plt Count (150-450) k/uL Neutrophils % % Lymphocytes % % Monocytes % % Eosinophils % % Basophils % % Neutrophils # (1.3-7.7) k/uL Lymphocytes # (1.0-4.8) k/uL Monocytes # (0-1.0) k/uL Eosinophils # (0-0.7) k/uL Basophils # (0-0.2) k/uL PT (9.0-12.0) sec INR (<1.2) APTT (22.0-30.0) sec Sodium (137-145) mmol/L Potassium (3.5-5.1) mmol/L Chloride (98-107) mmol/L Carbon Dioxide (22-30) mmol/L Anion Gap mmol/L BUN (7-17) mg/dL Creatinine (0.52-1.04) mg/dL Est GFR (CKD-EPI)AfAm (>60 ml/min/1.73 sqM) Est GFR (CKD-EPI)NonAf (>60 ml/min/1.73 sqM) Glucose (74-99) mg/dL Calcium (8.4-10.2) mg/dL Magnesium (1.6-2.3) mg/dL Total Bilirubin (0.2-1.3) mg/dL AST (14-36) U/L ALT (9-52) U/L Alkaline Phosphatase (38-126) U/L Troponin I <0.012 (0.000-0.034) ng/mL Total Protein (6.3-8.2) g/dL Albumin (3.5-5.0) g/dL Disposition Clinical Impression: Hypertension Disposition: HOME SELF-CARE Condition: Good Instructions (If sedation given, give patient instructions): Hypertension (ED) Is patient prescribed a controlled substance at d/c from ED?: No Referrals: William Hirsch MD [Primary Care Provider] - 1-2 days Time of Disposition: 14:07
[2018-11-17 13:40] VITALS: BP 140/81; PULSE 74
== END 2018-11-17 14:16 | disposition home or self-care (01) ==
LOC: EC 11:34
DX: I10 Essential (primary) hypertension (principal); E78.5 Hyperlipidemia, unspecified; E07.9 Disorder of thyroid, unspecified; F41.0 Panic disorder [episodic paroxysmal anxiety]; Z79.899 Other long term (current) drug therapy; Z79.890 Hormone replacement therapy; Z88.8 Allergy status to other drugs, medicaments and biological substances
CPT/HCPCS: 36415; 71045; 80053; 83735; 84484; 85025; 85610; 85730; 93005; 99285

== ENCOUNTER → 2018-12-01 | Outpatient (CLI) | payer MEDICARE ==
--- NOTE | 2018-12-01 12:35 | P.STRESS ---
- Stress Test Note Stress Test Results/Findings: Exam Performed: stress echo exercise Exam Date: 12/01/18 Reason for Exam: CHEST PAIN Height: 5 ft Weight: 63.503 kg Protocol: DENA Stage: 3 Duration of Exercise: 9:00 Resting Heart Rate: 75 Resting Blood Pressure: 130/66 Maximum Achieved Heart Rate: 139 Maximum Achieved Blood Pressure: 207/103 85% PMHR: 130 100% PMHR: 153 METS: 10.1 Technologist Comment: Stress Test Results/Findings: This is a 68-year-old female with history of hypertension, family history of ischemic heart disease being evaluated for symptoms of chest pain. Stress data: Baseline EKG showed sinus rhythm with normal MT interval and QRS duration with mild diffuse ST-T abnormalities. Patient walked on the [place] for 9 minutes achieving a maximal heart rate of 139 with a blood pressure 2070 and 3. EKGs taken during exercise showed morphology ST-T changes in inferolateral leads with upsloping ST segments which are not specific ischemia. Patient did not experience any chest pain. Echo data: Baseline echo images show normal wall motion and thickening. Echo images at peak did not show significant augmentation from the baseline with evidence of mild left ankle cavity dilation. In recovery, her LV function appeared to be improved and cavity size appeared to be smaller. Final impression: #1. Nondiagnostic stress test because of baseline EKG normalities #2. Because of lack of augmentation during exercise with slightly increased Left ventricle cavity size, ischemia cannot be completely excluded. Though this could be secondary to hypertensive response during exercise. Further evaluation may be necessary if clinically indicated.
== END ==
LOC: RADNMMAIN 08:55
PROVIDERS: ATTEND Internal Medicine
DX: R07.9 Chest pain, unspecified (principal)
CPT/HCPCS: 93351

== ENCOUNTER → 2019-01-06 | Outpatient (CLI) | payer MEDICARE ==
--- NOTE | 2019-01-08 11:18 | MM ---
Reason for exam: screening (asymptomatic). Last mammogram was performed 2 years ago. History: Patient is postmenopausal. Family history of premenopausal breast cancer in paternal aunt at age 40. 2 cyst aspirations of the right breast. Physical Findings: A clinical breast exam by your physician is recommended on an annual basis and results should be correlated with mammographic findings. MG 3D Screening Mammo W/Cad Bilateral CC and MLO view(s) were taken. Prior study comparison: December 27, 2016, bilateral MG 3d screening mammo w/cad. December 22, 2015, bilateral MG screening mammo w CAD. The breast tissue is heterogeneously dense. This may lower the sensitivity of mammography. There is no discrete abnormality. No significant changes when compared with prior studies. ASSESSMENT: Negative, BI-RAD 1 RECOMMENDATION: Routine screening mammogram of both breasts in 1 year.
== END | disposition home or self-care (01) ==
LOC: RADMAMWWP 10:47
PROVIDERS: ATTEND Obstetrics & Gynecology
DX: Z12.31 Encounter for screening mammogram for malignant neoplasm of breast (principal)
CPT/HCPCS: 77063; 77067

== ENCOUNTER → 2019-03-19 | Outpatient (CLI) | payer MEDICARE ==
[2019-03-19 07:54] LABS: Basophils % (A) 1 %; Eosinophils # (A) 0.1 k/uL (0-0.7); Eosinophils % (A) 2 %; HGB 12.4 gm/dL (11.4-16.0); Lymphocytes # (A) 1.8 k/uL (1.0-4.8); Lymphocytes % (A) 36 %; MCH 31.4 pg (25.0-35.0); MCHC 33.4 g/dL (31.0-37.0); MCV 93.9 fL (80.0-100.0); Mean Platelet Volume 7.8; Monocytes # (A) 0.4 k/uL (0-1.0); Monocytes % (A) 8 %; Neutrophils # (A) 2.6 k/uL (1.3-7.7); Neutrophils % (A) 51 %; Platelet Count 218 k/uL (150-450); RBC 3.94 m/uL (3.80-5.40); RDW 12.3 % (11.5-15.5); WBC 5.1 k/uL (3.8-10.6)
[2019-03-19 13:41] LABS: Hemoglobin A1C 5.5 % (4.0-6.0)
[2019-03-19 17:14] LABS: African American GFR (CKD) 88.4 (60.0-200.0); Albumin 4.3 g/dL (3.80-4.90); Albumin/Globulin Ratio 2.26 (1.60-3.17); Anion Gap 6.2 mmol/L (4.00-12.00); BUN/Creat Ratio 22.5 Ratio (12.00-20.00); Calcium 9.3 mg/dL (8.7-10.3); Carbon Dioxide 28.8 mmol/L (21.6-31.8); Chol/HDL Ratio 2.78; Globulin 1.9 g/dL (1.6-3.3); LDL Cholesterol,Calculated 86.6 mg/dL (0.0-131.0); Non-African American GFR(CKD) 76.3 (60.0-200.0); Potassium 4.1 mmol/L (3.5-5.5); Total Bilirubin 0.6 mg/dL (0.3-1.2); Total Protein 6.2 g/dL (6.2-8.2); VLDL Calculation 25.4 mg/dL (5.00-40.00)
[2019-03-19 17:22] LABS: T4, Free (Free Thyroxine) 1.4 ng/dL (0.80-1.80)
== END | disposition home or self-care (01) ==
LOC: LABWHC1 06:48
PROVIDERS: ATTEND Internal Medicine
DX: Z00.00 Encounter for general adult medical examination without abnormal findings (principal); I10 Essential (primary) hypertension; E03.9 Hypothyroidism, unspecified; E55.9 Vitamin D deficiency, unspecified; R79.9 Abnormal finding of blood chemistry, unspecified
CPT/HCPCS: 36415; 80053; 80061; 82306; 83036; 84439; 84443; 85025

== ENCOUNTER 2020-01-16 21:50 | Inpatient (IN) | payer MEDICARE ==
[2020-01-16] MEDS ORDERED: SODIUM CHLORIDE 0.9% 1,000 ML IV STA (22:26)
[2020-01-16] MEDS ORDERED: ONDANSETRON 4 MG/2 ML VIAL IVP STA (22:26)
[2020-01-16 22:43] LABS: Basophils # (A) 0.1 k/uL (0-0.2); Basophils % (A) 1 %; Eosinophils % (A) 1 %; HCT 36.6 % (34.0-46.0); HGB 12.8 gm/dL (11.4-16.0); Lymphocytes % (A) 12 %; MCH 31.6 pg (25.0-35.0); MCHC 35.1 g/dL (31.0-37.0); Monocytes # (A) 0.4 k/uL (0-1.0); Monocytes % (A) 5 %; Neutrophils % (A) 81 %; Platelet Count 233 k/uL (150-450); RBC 4.06 m/uL (3.80-5.40); RDW 11.8 % (11.5-15.5); WBC 8.7 k/uL (3.8-10.6)
[2020-01-16 22:52] LABS: ALT 25 U/L (4-34); AST 32 U/L (14-36); African American GFR (CKD) >90 (>60 ml/min/1.73 sqM); Albumin 4.6 g/dL (3.5-5.0); Alkaline Phosphatase 61 U/L (38-126); Anion Gap 10 mmol/L; Blood Urea Nitrogen 12 mg/dL (7-17); Calcium 9.1 mg/dL (8.4-10.2); Carbon Dioxide 25 mmol/L (22-30); Chloride 79 mmol/L (98-107); Glucose 133 mg/dL (74-99); Lipase 43 U/L (23-300); Non-African American GFR(CKD) >90 (>60 ml/min/1.73 sqM); Potassium 3.2 mmol/L (3.5-5.1); Total Bilirubin 1.2 mg/dL (0.2-1.3); Total Protein 7.4 g/dL (6.3-8.2)
[2020-01-16 23:10] LABS: Sodium 114 mmol/L (137-145)
[2020-01-16] MEDS ORDERED: NALOXONE 0.4 MG/ML 1 ML VIAL IV PRN (23:29)
[2020-01-16] MEDS ORDERED: SODIUM CHLORIDE 0.9% 1,000 ML IV SCH (23:30)
[2020-01-16] MEDS ORDERED: TRIMETHOBENZAMIDE 100 MG/ML 2 ML VIAL IM PRN (23:33)
--- NOTE | 2020-01-16 23:38 | ED ---
Nausea/Vomiting/Diarrhea HPI - General Chief complaint: Nausea/Vomiting/Diarrhea Stated complaint: Vomiting Time Seen by Provider: 01/16/20 22:13 Source: patient Mode of arrival: ambulatory Limitations: no limitations - History of Present Illness Initial comments: 69-year-old female patient presents to the emergency department today for evaluation of nausea and vomiting since early this afternoon. Patient states that this morning she was feeling a little bit dizzy. States that she was going to eat lunch but then started she'll nausea so she only had a cracker. States that she has had several episodes of vomiting since onset. Denies any hemateme sis. Denies any sick contacts or recent travel. Denies any abdominal pain, constipation, or diarrhea. Denies fever or chills. Does admit to drinking one glass of wine daily. Denies any chest pain or shortness of breath. Patient denies any recent rash, cough, shortness of breath, chest pain, back pain, numbness, tingling, hematuria, dysuria, urinary urgency, urinary frequency, headache, visual changes, or any other complaints. - Related Data Home Medications Medication Instructions Recorded Confirmed ALPRAZolam [Xanax] 0.25 mg PO Q8HR PRN 07/28/15 10/31/18 Ca/D3/Mag/Zinc/Thalia/Christian/Mgbor 1 tab PO HS 07/28/15 10/31/18 [Caltrate 600+D3+Min Chew Tab] Losartan Potassium [Cozaar] 25 mg PO DAILY 07/28/15 10/31/18 Metoprolol Succinate (ER) [Toprol 50 mg PO BID 07/28/15 10/31/18 Xl] Multivitamins, Thera [Multivitamin] 1 tab PO DAILY@1200 07/28/15 10/31/18 [place]-3 Fatty Acids/Fish Oil [Fish 1 cap PO DAILY 07/28/15 10/31/18 Oil 1,000 mg Softgel] Omeprazole [PriLOSEC] 20 mg PO AC-BRKFST 07/28/15 10/31/18 Simvastatin [Zocor] 80 mg PO HS 07/28/15 10/31/18 Levothyroxine Sodium [Synthroid] 50 mcg PO DAILY 10/31/18 10/31/18 Allergies Allergy/AdvReac Type Severity Reaction Status Date / Time budesonide [From Symbicort] Allergy Rash/Hives Verified 01/16/20 22:10 formoterol fumarate Allergy Rash/Hives Verified 01/16/20 22:10 [From [employer]] Review of Systems ROS Statement: Those systems with pertinent positive or pertinent negative responses have been documented in the HPI. ROS Other: All systems not noted in ROS Statement are negative. Past Medical History Past Medical History: Hyperlipidemia, Hypertension, Thyroid Disorder History of Any Multi-Drug Resistant Organisms: None Reported Past Surgical History: Appendectomy, Section, Orthopedic Surgery, Tonsillectomy Additional Past Surgical History / Comment(s): vein stripping Past Psychological History: Anxiety, Panic Disorder Smoking Status: Never smoker Past Alcohol Use History: Daily Past Drug Use History: None Reported General Exam Limitations: no limitations General appearance: alert, in no apparent distress, other (This is a well- developed, well-nourished adult female patient in no acute distress. Vital signs upon presentation are temperature 98.4F, pulse 80, respirations 20, blood pressure 160/81, pulse ox 97% on room air.) Eye exam: Present: normal appearance, PERRL, EOMI. Absent: scleral icterus, conjunctival injection, periorbital swelling ENT exam: Present: normal exam, normal oropharynx, mucous membranes moist Respiratory exam: Present: normal lung sounds bilaterally. Absent: respiratory distress, wheezes, rales, rhonchi, stridor Cardiovascular Exam: Present: regular rate, normal rhythm, normal heart sounds. Absent: systolic murmur, diastolic murmur, rubs, gallop, clicks GI/Abdominal exam: Present: soft, normal bowel sounds. Absent: distended, tenderness, guarding, rebound, rigid Neurological exam: Present: alert, oriented X3, CN II-XII intact Expanded Speech: Present: fluid speech Motor strength exam: RUE: 5, LUE: 5, RLE: 5, LLE: 5 DTR: Patellar (R): 2+, Patellar (L): 2+ Psychiatric exam: Present: normal affect, normal mood Skin exam: Present: warm, dry, intact, normal color. Absent: rash Course Vital Signs 01/16/20 01/17/20 22:06 00:13 Temperature 98.4 F Pulse Rate 80 75 Respiratory 20 16 Rate Blood Pressure 168/81 130/74 O2 Sat by Pulse 97 96 Oximetry Procedures - [place] Protocol (Time Out) Nurse: Cody Murrell Medical Decision Making - Medical Decision Making 69-year-old female patient presents to the emergency department today for e valuation of nausea, vomiting, dizziness. Physical examination nontender abdomen. No diarrhea. No fever. Labs reviewed and did reveal normal CBC, sodium 114, potassium 3.2, chloride 79, glucose 133. Uric acid is 2.6, calcium 9.1, phosphorus 2.8, magnesium 1.4. Urinalysis showed no sign of infection, 2+ ketones, small amount of blood, osmolality is 457, random creatinine is 35.2. Other labs are pending. We did replace magnesium and potassium. We will start normal saline at 94 mL/h as she did have a 300 mL bolus upon arrival. Nephrology will be consulted. - Lab Data Result diagrams: 01/16/20 22:33 01/16/20 22:33 Lab Results 01/16/20 01/16/20 01/16/20 Range/Units 22:33 22:33 22:34 WBC 8.7 (3.8-10.6) k/uL RBC 4.06 (3.80-5.40) m/uL Hgb 12.8 (11.4-16.0) gm/dL Hct 36.6 (34.0-46.0) % MCV 90.0 (80.0-100.0) fL MCH 31.6 (25.0-35.0) pg MCHC 35.1 (31.0-37.0) g/dL RDW 11.8 (11.5-15.5) % Plt Count 233 (150-450) k/uL MPV 7.0 Neutrophils % 81 % Lymphocytes % 12 % Monocytes % 5 % Eosinophils % 1 % Basophils % 1 % Neutrophils # 7.0 (1.3-7.7) k/uL Lymphocytes # 1.0 (1.0-4.8) k/uL Monocytes # 0.4 (0-1.0) k/uL Eosinophils # 0.0 (0-0.7) k/uL Basophils # 0.1 (0-0.2) k/uL Sodium 114 L* (137-145) mmol/L Potassium 3.2 L (3.5-5.1) mmol/L Chloride 79 L (98-107) mmol/L Carbon Dioxide 25 (22-30) mmol/L Anion Gap 10 mmol/L BUN 12 (7-17) mg/dL Creatinine 0.40 L (0.52-1.04) mg/dL Est GFR (CKD-EPI)AfAm >90 (>60 ml/min/1.73 sqM) Est GFR (CKD-EPI)NonAf >90 (>60 ml/min/1.73 sqM) Glucose 133 H (74-99) mg/dL Uric Acid (3.7-7.4) mg/dL Calcium 9.1 (8.4-10.2) mg/dL Phosphorus (2.5-4.5) mg/dL Magnesium (1.6-2.3) mg/dL Total Bilirubin 1.2 (0.2-1.3) mg/dL AST 32 (14-36) U/L ALT 25 (4-34) U/L Alkaline Phosphatase 61 (38-126) U/L Troponin I <0.012 (0.000-0.034) ng/mL Total Protein 7.4 (6.3-8.2) g/dL Albumin 4.6 (3.5-5.0) g/dL Lipase 43 (23-300) U/L TSH (0.465-4.680) mIU/L Cortisol ug/dL Urine Color Urine Appearance (Clear) Urine pH (5.0-8.0) Ur Specific [place] (1.001-1.035) Urine Protein (Negative) Urine Glucose (UA) (Negative) Urine Ketones (Negative) Urine Blood (Negative) Urine Nitrite (Negative) Urine Bilirubin (Negative) Urine Urobilinogen (<2.0) mg/dL Ur Leukocyte Esterase (Negative) Urine RBC (0-5) /hpf Urine WBC (0-5) /hpf Ur Squamous Epith Cells (0-4) /hpf Urine Bacteria (None) /hpf Urine Osmolality (50-1400) mosm/kg Ur Random Creatinine mg/dL 01/16/20 01/16/20 01/16/20 Range/Units 23:41 23:41 23:41 WBC (3.8-10.6) k/uL RBC (3.80-5.40) m/uL Hgb (11.4-16.0) gm/dL Hct (34.0-46.0) % MCV (80.0-100.0) fL MCH (25.0-35.0) pg MCHC (31.0-37.0) g/dL RDW (11.5-15.5) % Plt Count (150-450) k/uL MPV Neutrophils % % Lymphocytes % % Monocytes % % Eosinophils % % Basophils % % Neutrophils # (1.3-7.7) k/uL Lymphocytes # (1.0-4.8) k/uL Monocytes # (0-1.0) k/uL Eosinophils # (0-0.7) k/uL Basophils # (0-0.2) k/uL Sodium (137-145) mmol/L Potassium (3.5-5.1) mmol/L Chloride (98-107) mmol/L Carbon Dioxide (22-30) mmol/L Anion Gap mmol/L BUN (7-17) mg/dL Creatinine (0.52-1.04) mg/dL Est GFR (CKD-EPI)AfAm (>60 ml/min/1.73 sqM) Est GFR (CKD-EPI)NonAf (>60 ml/min/1.73 sqM) Glucose (74-99) mg/dL Uric Acid (3.7-7.4) mg/dL Calcium (8.4-10.2) mg/dL Phosphorus (2.5-4.5) mg/dL Magnesium (1.6-2.3) mg/dL Total Bilirubin (0.2-1.3) mg/dL AST (14-36) U/L ALT (4-34) U/L Alkaline Phosphatase (38-126) U/L Troponin I (0.000-0.034) ng/mL Total Protein (6.3-8.2) g/dL Albumin (3.5-5.0) g/dL Lipase (23-300) U/L TSH (0.465-4.680) mIU/L Cortisol ug/dL Urine Color Light Yellow Urine Appearance Clear (Clear) Urine pH 7.0 (5.0-8.0) Ur Specific [place] 1.011 (1.001-1.035) Urine Protein Trace H (Negative) Urine Glucose (UA) Negative (Negative) Urine Ketones 2+ H (Negative) Urine Blood Small H (Negative) Urine Nitrite Negative (Negative) Urine Bilirubin Negative (Negative) Urine Urobilinogen <2.0 (<2.0) mg/dL Ur Leukocyte Esterase Negative (Negative) Urine RBC 11 H (0-5) /hpf Urine WBC 1 (0-5) /hpf Ur Squamous Epith Cells <1 (0-4) /hpf Urine Bacteria Rare H (None) /hpf Urine Osmolality 457 (50-1400) mosm/kg Ur Random Creatinine 35.2 mg/dL 01/16/20 Range/Units 23:41 WBC (3.8-10.6) k/uL RBC (3.80-5.40) m/uL Hgb (11.4-16.0) gm/dL Hct (34.0-46.0) % MCV (80.0-100.0) fL MCH (25.0-35.0) pg MCHC (31.0-37.0) g/dL RDW (11.5-15.5) % Plt Count (150-450) k/uL MPV Neutrophils % % Lymphocytes % % Monocytes % % Eosinophils % % Basophils % % Neutrophils # (1.3-7.7) k/uL Lymphocytes # (1.0-4.8) k/uL Monocytes # (0-1.0) k/uL Eosinophils # (0-0.7) k/uL Basophils # (0-0.2) k/uL Sodium (137-145) mmol/L Potassium (3.5-5.1) mmol/L Chloride (98-107) mmol/L Carbon Dioxide (22-30) mmol/L Anion Gap mmol/L BUN (7-17) mg/dL Creatinine (0.52-1.04) mg/dL Est GFR (CKD-EPI)AfAm (>60 ml/min/1.73 sqM) Est GFR (CKD-EPI)NonAf (>60 ml/min/1.73 sqM) Glucose (74-99) mg/dL Uric Acid 2.6 L (3.7-7.4) mg/dL Calcium (8.4-10.2) mg/dL Phosphorus 2.8 (2.5-4.5) mg/dL Magnesium 1.4 L (1.6-2.3) mg/dL Total Bilirubin (0.2-1.3) mg/dL AST (14-36) U/L ALT (4-34) U/L Alkaline Phosphatase (38-126) U/L Troponin I (0.000-0.034) ng/mL Total Protein (6.3-8.2) g/dL Albumin (3.5-5.0) g/dL Lipase (23-300) U/L TSH 1.620 (0.465-4.680) mIU/L Cortisol 50 ug/dL Urine Color Urine Appearance (Clear) Urine pH (5.0-8.0) Ur Specific [place] (1.001-1.035) Urine Protein (Negative) Urine Glucose (UA) (Negative) Urine Ketones (Negative) Urine Blood (Negative) Urine Nitrite (Negative) Urine Bilirubin (Negative) Urine Urobilinogen (<2.0) mg/dL Ur Leukocyte Esterase (Negative) Urine RBC (0-5) /hpf Urine WBC (0-5) /hpf Ur Squamous Epith Cells (0-4) /hpf Urine Bacteria (None) /hpf Urine Osmolality (50-1400) mosm/kg Ur Random Creatinine mg/dL - EKG Data EKG shows normal: sinus rhythm Rate: normal EKG Comments: EKG was obtained at 2245 showing normal sinus rhythm with first-degree AV block, premature atrial complexes, and prolonged QT. Ventricular rate 88, AK interval 210, QRS duration 94, QT/QTc 408/470. No evidence of ST depression or elevation. Disposition Clinical Impression: Hyponatremia, Vomiting Disposition: ADMITTED IP TO THIS [facility] Condition: Serious Decision to Admit Reason: Admit from EC Decision Date: 01/16/20 Decision Time: 23:38
[2020-01-17 00:01] LABS: Magnesium 1.4 mg/dL (1.6-2.3); Phosphorus 2.8 mg/dL (2.5-4.5); Uric Acid 2.6 mg/dL (3.7-7.4)
[2020-01-17 00:05] LABS: Appearance,Urine Clear (Clear); Bacteria,Urine Rare /hpf; Bilirubin,Urine Negative (Negative); Blood,Urine Small (Negative); Color,Urine Light Yellow; Glucose,Urine (UA) Negative (Negative); Ketones,Urine 2+ (Negative); Leukocyte Esterase,Urine Negative (Negative); Nitrite,Urine Negative (Negative); Protein,Urine Trace (Negative); RBC,Urine 11 /hpf (0-5); Specific Gravity,Urine 1.011 (1.001-1.035); Squamous Epithelial Cell,Urine <1 /hpf (0-4); Urobilinogen,Urine <2.0 mg/dL (<2.0); WBC,Urine 1 /hpf (0-5)
[2020-01-17 00:25] LABS: Creatinine,Urine Random 35.2 mg/dL
[2020-01-17] MEDS ORDERED: POTASSIUM CHLORIDE ER 20 MEQ TAB.ER PO STA (00:40)
[2020-01-17] MEDS ORDERED: MAGNESIUM SULFATE-D5W PMX 1 GM in DEXTROSE/WATER 1 100ML.BAG IVPB ONE (00:40)
[2020-01-17 04:16] LABS: African American GFR (CKD) >90 (>60 ml/min/1.73 sqM); Anion Gap 7 mmol/L; Blood Urea Nitrogen 9 mg/dL (7-17); Calcium 8.3 mg/dL (8.4-10.2); Carbon Dioxide 26 mmol/L (22-30); Chloride 80 mmol/L (98-107); Glucose 116 mg/dL (74-99); Non-African American GFR(CKD) >90 (>60 ml/min/1.73 sqM); Potassium 3.3 mmol/L (3.5-5.1)
[2020-01-17 04:24] LABS: Sodium 113 mmol/L (137-145)
[2020-01-17] MEDS ORDERED: SODIUM CHLORIDE 0.9% 1,000 ML IV SCH (05:15)
[2020-01-17 07:45] LABS: African American GFR (CKD) >90 (>60 ml/min/1.73 sqM); Anion Gap 6 mmol/L; Blood Urea Nitrogen 8 mg/dL (7-17); Calcium 8.6 mg/dL (8.4-10.2); Carbon Dioxide 27 mmol/L (22-30); Chloride 86 mmol/L (98-107); Glucose 113 mg/dL (74-99); Non-African American GFR(CKD) >90 (>60 ml/min/1.73 sqM); Potassium 3.5 mmol/L (3.5-5.1); Sodium 119 mmol/L (137-145)
[2020-01-17] MEDS: METOPROLOL SUCCINATE (ER) 50 MG TAB.ER.24H PO SCH ×2 (08:38→20:25)
[2020-01-17] MEDS: LEVOTHYROXINE 50 MCG TAB PO SCH (08:38)
--- NOTE | 2020-01-17 11:32 | P.NPCON ---
History of Present Illness - Reason for Consult hyponatremia - History of Present Illness Reason for consultation: Hyponatremia History of present illness: Patient is a 69-year-old female seen in consultation for hyponatremia. Patient's sodium level was 114 on admission last night at 10:44 PM. It was re peated and was down to 113 and is now up to 119 as of this morning. She is maintained on normal saline at 1 75 mL an hour. Potassium was low which was replaced. She was taking hydrochlorothiazide at home as well. She denies any history of malignancy. Patient came to the hospital due to persistent vomiting which began yesterday afternoon. Oral intake has been poor since yesterday. She states she's been drinking quite a bit of water to keep herself hydrated. She also takes Celebrex at home as needed. No diarrhea. No chest shortness of breath. No edema. TSH and cortisol both normal. No fever or chills. Blood pressure stable. Vital signs are stable. General: The patient appeared well nourished and normally developed. HEENT: Head exam is unremarkable. Neck is without jugular venous distension. LUNGS: Breath sounds decreased. HEART: Rate and Rhythm are regular. ABDOMEN: Soft, nontender. EXTREMITITES: No clubbing, cyanosis, or edema. Past Medical History Past Medical History: Hyperlipidemia, Hypertension, Thyroid Disorder Additional Past Medical History / Comment(s): Herniated disc History of Any Multi-Drug Resistant Organisms: None Reported Past Surgical History: Appendectomy, Section, Heart Catheterization, Orthopedic Surgery, Tonsillectomy Additional Past Surgical History / Comment(s): vein stripping. Heart cath Feb Past Anesthesia/Blood Transfusion Reactions: No Reported Reaction Past Psychological History: Anxiety, Panic Disorder Smoking Status: Never smoker Past Alcohol Use History: Daily Additional Past Alcohol Use History / Comment(s): drinks 1 glass of wine a day Past Drug Use History: None Reported - Past Family History Mother Family Medical History: COPD, Hyperlipidemia, Hypertension Additional Family Medical History / Comment(s): emphysema. osteoporosis Medications and Allergies Home Medications Medication Instructions Recorded Confirmed Type ALPRAZolam [Xanax] 0.25 mg PO DAILY PRN 07/28/15 01/17/20 History Metoprolol Succinate (ER) [Toprol 50 mg PO BID 07/28/15 01/17/20 History Xl] Omeprazole [PriLOSEC] 20 mg PO HS 07/28/15 01/17/20 History Simvastatin [Zocor] 80 mg PO HS 07/28/15 01/17/20 History Levothyroxine Sodium [Synthroid] 50 mcg PO DAILY 10/31/18 01/17/20 History Celecoxib [CeleBREX] 200 mg PO BID 01/17/20 01/17/20 History Losartan Potassium [Cozaar] 50 mg PO HS 01/17/20 01/17/20 History hydroCHLOROthiazide [Hydrodiuril] 25 mg PO DAILY 01/17/20 01/17/20 History traMADol HCL [Ultram] 50 mg PO TID PRN 01/17/20 01/17/20 History Allergies Allergy/AdvReac Type Severity Reaction Status Date / Time budesonide [From Symbicort] Allergy Rash/Hives Verified 01/17/20 06:54 formoterol fumarate Allergy Rash/Hives Verified 01/17/20 06:54 [From Symbicort] Physical Exam Vitals: Vital Signs Temp Pulse Resp BP Pulse Ox 01/17/20 07:00 98.1 F 70 18 115/77 99 01/17/20 05:00 97.8 F 68 18 137/80 98 01/17/20 02:08 71 18 122/75 97 01/17/20 00:13 75 16 130/74 96 01/16/20 22:06 98.4 F 80 20 168/81 97 Intake and Output 01/16/20 01/17/20 01/17/20 22:59 06:59 14:59 Other: Weight 65.771 kg 65.771 kg Results - Lab Results Most recent lab results Calcium 8.6 mg/dL (8.4-10.2) 01/17/20 07:05 Phosphorus 2.8 mg/dL (2.5-4.5) 01/16/20 23:41 Magnesium 1.4 mg/dL (1.6-2.3) L 01/16/20 23:41 01/16/20 22:33 01/17/20 07:05 Assessment and Plan Plan: Assessment: 1. Hypotonic hypovolemic hyponatremia secondary to vomiting and further worsened with the use of hydrochlorothiazide and nonsteroidals, improved with normal saline. Sodium level 119 as of this morning. TSH and cortisol level normal. Urine sodium 103 and urine osmolality 457. 2. Hypokalemia from poor intake and diuretics. 3. Hypomagnesemia from poor intake and diuretics. 4. Benign hypertension. Controlled. Plan: Hep-Lock IV fluids. Encouraged oral intake. Hold hydrochlorothiazide. Repeat sodium level at 3 PM today. Avoid rapid correction of hyponatremia. Thank you for the consultation. I will continue to follow the patient with you during her hospital stay.
[2020-01-17 12:09] LABS: African American GFR (CKD) >90 (>60 ml/min/1.73 sqM); Anion Gap 4 mmol/L; Blood Urea Nitrogen 7 mg/dL (7-17); Calcium 8.9 mg/dL (8.4-10.2); Carbon Dioxide 26 mmol/L (22-30); Chloride 96 mmol/L (98-107); Glucose 95 mg/dL (74-99); Non-African American GFR(CKD) >90 (>60 ml/min/1.73 sqM); Potassium 3.8 mmol/L (3.5-5.1); Sodium 126 mmol/L (137-145)
--- NOTE | 2020-01-17 14:41 | P.HPIM ---
History of Present Illness H&P Date: 01/17/20 Chief Complaint: Nausea and vomiting This is a 69-year-old female patient of mine with past medical history of hypertension, hyperlipidemia, hypothyroidism, gastroesophageal reflux disease, chronic pain. Patient presented to the hospital with complaints of nausea and vomiting started yesterday afternoon, patient stated that she was doing some tyler decoration and all of the sudden she felt that she is nauseated and She is also was having some dizziness, despite the fact that she had a bagel with a cream cheese on it, then she started to feel extrely sick with nausea and vomiting without diarrhea She denies any blood in her vomitus. No abdominal pain. No diarrhea or constipation. She denies having any fever or chills. No chest pain or shortness of breath. Patient came into [facility] emergency center. She was afebrile, heart rate 80, blood pressure 168/81, pulse ox 97% on room air. CBC was unremarkable. Sodium was recently at 114, potassium 3.2 chloride 79, CO2 25, BUN 12 and creatinine 0.4. Blood sugar 133. Uric acid 2.6. Phosphorus 2.8, magnesium 1.4. Troponin negative. Liver function tests normal. Urinalysis was 2+ ketones and small amount of blood without signs of infection. Urine osmolality 457 and random urine creatinine 35.2. Lipase 43. Magnesium and potassium were replaced in the emergency center, status post 2 L of IV fluid EKG is sinus rhythm with first- degree block. Patient admitted to the cardiac stepdown unit and consult with nephrology. Patient stated that about 3 weeks ago she did had epidural injection in her back and was recently placed on tramadol 50 mg orally tid along with Celecoxib 200 g orally daily, and that when she started to have issues, so patient was admited for evaluation, while I saw the patient in the ER she did have a temerature and was complaining of sire throat and irritative cough , so I have asked the N[facility]se to do a COVID-19 Swab for PCP. Review of Systems Constitutional: Reports fatigue, Reports lethargy, Reports malaise, Reports poor appetite, Denies chills, Denies fever Eyes: denies blurred vision, denies pain Ears, nose, mouth and throat: Denies dysphagia, Denies headache, Denies nasal congestion, Denies nasal discharge, Denies sore throat, Denies vertigo Cardiovascular: Denies chest pain, Denies decreased exercise tolerance, Denies dyspnea on exertion, Denies lightheadedness, Denies shortness of breath, Denies syncope Respiratory: Denies cough, Denies cough with sputum, Denies dyspnea, Denies excessive sputum, Denies hemoptysis Gastrointestinal: Reports early satiety, Reports loss of appetite, Reports nausea, Reports vomiting, Denies abdominal pain, Denies BRBPR, Denies change in bowel habits, Denies constipation, Denies diarrhea, Denies dyspepsia, Denies melena Genitourinary: Denies dysuria, Denies hematuria, Denies urgency, Denies urinary frequency Menstruation: Reports postmenopausal Musculoskeletal: Reports muscle weakness, Denies frequent falls, Denies myalgias Musculoskeletal: absent: ankle pain, ankle stiffness, ankle swelling, elbow pain, elbow stiffness, elbow swelling, foot pain, foot stiffness, foot swelling, hand pain, hand stiffness, hand swelling, hip pain, hip stiffness, hip swelling, knee pain, knee stiffness, knee swelling, shoulder pain, shoulder stiffness, shoulder swelling, wrist pain, wrist stiffness, wrist swelling Integumentary: Denies pruritus, Denies rash, Denies wounds Neurological: Denies change in mentation, Denies change in speech, Denies confusion, Denies numbness, Denies weakness Psychiatric: Reports anxiety, Reports depression, Denies sadness/tearfulness, Denies sleep disturbances, Denies suicidal ideation Endocrine: Reports fatigue, Denies weight change Past Medical History Past Medical History: GERD/Reflux, Hyperlipidemia, Hypertension, Osteoarthritis (OA), Thyroid Disorder Additional Past Medical History / Comment(s): Herniated disc History of Any Multi-Drug Resistant Organisms: None Reported Past Surgical History: Appendectomy, Section, Heart Catheterization, Orthopedic Surgery, Tonsillectomy Additional Past Surgical History / Comment(s): vein stripping. Heart cath February 2019 Past Anesthesia/Blood Transfusion Reactions: No Reported Reaction Past Psychological History: Anxiety, Panic Disorder Smoking Status: Never smoker Past Alcohol Use History: Daily Additional Past Alcohol Use History / Comment(s): drinks 1 glass of wine a day Past Drug Use History: None Reported - Past Family History Mother Family Medical History: COPD (Mother at the age of 64 from Emphysema and Hyperlipidemia.), Hyperlipidemia, Hypertension Additional Family Medical History / Comment(s): emphysema. osteoporosis Father Family Medical History: Cancer (Father at the age of 74 rom lung cancer.) Brother(s) Family Medical History: Cancer (Patient had 5 brothers , one from ALL at 1+1/2 year old, one of lung cancer at the age of 59 and one of pancraetic cancer at the age of 60,2 living brothers one with PAD and oneis ok.) Sister(s) Family Medical History: COPD (patient has one sister who from COPD.) Daughter(s) Family Medical History: No Reported History (one daughter ok.) Son(s) Family Medical History: No Reported History (one son ok) Medications and Allergies Home Medications Medication Instructions Recorded Confirmed Type ALPRAZolam [Xanax] 0.25 mg PO DAILY PRN 07/28/15 01/17/20 History Metoprolol Succinate (ER) [Toprol 50 mg PO BID 07/28/15 01/17/20 History Xl] Omeprazole [PriLOSEC] 20 mg PO HS 07/28/15 01/17/20 History Simvastatin [Zocor] 80 mg PO HS 07/28/15 01/17/20 History Levothyroxine Sodium [Synthroid] 50 mcg PO DAILY 10/31/18 01/17/20 History Celecoxib [CeleBREX] 200 mg PO BID 01/17/20 01/17/20 History Losartan Potassium [Cozaar] 50 mg PO HS 01/17/20 01/17/20 History hydroCHLOROthiazide [Hydrodiuril] 25 mg PO DAILY 01/17/20 01/17/20 History traMADol HCL [Ultram] 50 mg PO TID PRN 01/17/20 01/17/20 History Allergies Allergy/AdvReac Type Severity Reaction Status Date / Time budesonide [From Symbicort] Allergy Rash/Hives Verified 01/17/20 06:54 formoterol fumarate Allergy Rash/Hives Verified 01/17/20 06:54 [From Symbicort] Physical Exam Vitals: Vital Signs Temp Pulse Resp BP Pulse Ox 01/17/20 07:00 98.1 F 70 18 115/77 99 01/17/20 05:00 97.8 F 68 18 137/80 98 01/17/20 02:08 71 18 122/75 97 01/17/20 00:13 75 16 130/74 96 01/16/20 22:06 98.4 F 80 20 168/81 97 Intake and Output 01/16/20 01/17/20 01/17/20 22:59 06:59 14:59 Other: Weight 65.771 kg 65.771 kg Physical examination: HEENT: Head is atraumatic, normocephalic, pupils were equal round reactive to light and accommodation, extraocular muscle movement intact, mucous membranes of the mouth are somewhat dry. Neck: Supple, no JVD, no carotid bruit. Chest: Decreased breath sounds at bases few rhonchi no extremity wheezes, no chest wall tenderness, no intercostal retractions. Heart: First heart sound is depressed, second heart sounds normal, there is no gallop or murmur. Abdomen: Soft, no abdominal tenderness no rebound or guarding positive bowel sounds Extremities: No pedal edema, dorsalis pedis +1 bilaterally. Neurologic examination: Patient is awake alert and oriented 3, cranial nerves 3-12 are grossly intact, muscle power 4 out of 5 in upper and lower extremities bilaterally. Results CBC & Chem 7: 01/16/20 22:33 01/18/20 15:32 Labs: Abnormal Lab Results - Last 24 Hours (Table) 01/16/20 01/16/20 01/16/20 Range/Units 22:33 23:41 23:41 Sodium 114 L* (137-145) mmol/L Potassium 3.2 L (3.5-5.1) mmol/L Chloride 79 L (98-107) mmol/L Creatinine 0.40 L (0.52-1.04) mg/dL Glucose 133 H (74-99) mg/dL Osmolality 238 L* (280-301) mosm/kg Uric Acid 2.6 L (3.7-7.4) mg/dL Calcium (8.4-10.2) mg/dL Magnesium 1.4 L (1.6-2.3) mg/dL Urine Protein Trace H (Negative) Urine Ketones 2+ H (Negative) Urine Blood Small H (Negative) Urine RBC 11 H (0-5) /hpf Urine Bacteria Rare H (None) /hpf 01/17/20 01/17/20 01/17/20 Range/Units 03:27 07:05 11:07 Sodium 113 L* 119 L* 126 L (137-145) mmol/L Potassium 3.3 L (3.5-5.1) mmol/L Chloride 80 L 86 L 96 L (98-107) mmol/L Creatinine 0.38 L 0.44 L 0.49 L (0.52-1.04) mg/dL Glucose 116 H 113 H (74-99) mg/dL Osmolality (280-301) mosm/kg Uric Acid (3.7-7.4) mg/dL Calcium 8.3 L (8.4-10.2) mg/dL Magnesium (1.6-2.3) mg/dL Urine Protein (Negative) Urine Ketones (Negative) Urine Blood (Negative) Urine RBC (0-5) /hpf Urine Bacteria (None) /hpf Thrombosis Risk Factor Assmnt - DVT/VTE Prophylaxis DVT/VTE Prophylaxis: Pharmacologic Prophylaxis ordered - Choose All That Apply Any of the Below Risk Factors Present?: No Other Risk Factors: Yes Each Risk Factor Represents 2 Points: Age 61-74 years Other congenital or acquired thrombophilia - If yes, enter type in comment: No Thrombosis Risk Factor Assessment Total Risk Factor Score: 2 Thrombosis Risk Factor Assessment Level: Low Risk Assessment and Plan Assessment: 1. Hypotonic hypovolemic hyponatremia secondary to vomiting, hydrochlorothiazide, nonsteroidals. Patient is status post 2 L of IV fluids, admitted to the cardiac stepdown unit. Nephrology consult. Hydrochlorothiazide on hold, we will continue with monitoring seru sodium very closely, patient did receive one dose of DDAVP and was paced on D5W due to rapid correction of hyponatremia. 2. Hypokalemia secondary to poor intake and diuretics, status post replacement. Repeat CMP tomorrow. 3. Hypomagnesemia secondary to poor oral intake and diuretics, status post replacement. Continue to monitor 4. Hypertension. Continue Cozaar 50 mg at bedtime, Toprol-XL 50 mg twice daily. 5. Hyperlipidemia. Continue Lipitor 40 mg at bedtime. 6. Gastroesophageal reflux disease and GI prophylaxis. Continue Protonix 40 mg at bedtime. 7. Hypothyroidism. Continue levothyroxine 50 g daily. 8. Chronic pain. Celebrex on hold. 9. Generalized anxiety disorder. Continue Xanax 0.5 mg daily if needed. 10. DVT prophylaxis. Lovenox 40 mg SC daily. Admit to inpatient. Estimate length of stay 2 midnights Patient is full code.
[2020-01-17] MEDS: DEXTROSE 5% IN WATER 1,000 ML IV SCH ×2 (15:34→22:09)
[2020-01-17 18:13] LABS: Magnesium 2.1 mg/dL (1.6-2.3)
[2020-01-17] MEDS: ATORVASTATIN 40 MG TAB PO SCH (20:25)
[2020-01-17] MEDS: LOSARTAN 50 MG TAB PO SCH (20:25)
[2020-01-17] MEDS: PANTOPRAZOLE 40 MG TABLET PO SCH (20:25)
[2020-01-17] MEDS ORDERED: DESMOPRESSIN ACETATE 1 MCG in SODIUM CHLORIDE 0.9% 50 ML IVPB ONE (21:40)
[2020-01-18 04:18] LABS: ALT 19 U/L (4-34); AST 25 U/L (14-36); African American GFR (CKD) >90 (>60 ml/min/1.73 sqM); Albumin 3.5 g/dL (3.5-5.0); Alkaline Phosphatase 40 U/L (38-126); Anion Gap 2 mmol/L; Blood Urea Nitrogen 9 mg/dL (7-17); Calcium 8.5 mg/dL (8.4-10.2); Carbon Dioxide 27 mmol/L (22-30); Chloride 96 mmol/L (98-107); Glucose 125 mg/dL (74-99); Non-African American GFR(CKD) >90 (>60 ml/min/1.73 sqM); Potassium 3.7 mmol/L (3.5-5.1); Sodium 125 mmol/L (137-145); Total Bilirubin 0.7 mg/dL (0.2-1.3); Total Protein 5.9 g/dL (6.3-8.2)
[2020-01-18] MEDS: LEVOTHYROXINE 50 MCG TAB PO SCH (05:54)
[2020-01-18] MEDS: ENOXAPARIN 40 MG/0.4 ML SYRINGE SQ SCH (08:15)
[2020-01-18] MEDS: METOPROLOL SUCCINATE (ER) 50 MG TAB.ER.24H PO SCH ×2 (08:15→20:37)
[2020-01-18] MEDS ORDERED: ACETAMINOPHEN TAB 325 MG TAB PO PRN (08:19)
--- NOTE | 2020-01-18 11:22 | P.PN ---
Subjective Patient is seen in follow-up for hyponatremia. Sodium level corrected rapidly initially she was receiving high rate of normal saline. She was then switched over to D5W and also received a dose of DDAVP over last night. Sodium level 122 this morning. She did eat breakfast this morning. No vomiting or diarrhea. Vital signs are stable. General: The patient appeared well nourished and normally developed. HEENT: Head exam is unremarkable. Neck is without jugular venous distension. LUNGS: Lungs are clear to auscultation and percussion. Breath sounds decreased. HEART: Rate and Rhythm are regular. ABDOMEN: Soft, nontender. EXTREMITITES: No clubbing, cyanosis, or edema. Objective - Vital Signs Vital signs: Vital Signs Temp 98.5 F 01/18/20 08:00 Pulse 66 01/18/20 08:00 Resp 18 01/18/20 08:00 BP 129/76 01/18/20 08:00 Pulse Ox 98 01/18/20 08:00 Intake & Output 01/17/20 01/18/20 01/18/20 18:59 06:59 18:59 Intake Total 350 Output Total 250 Balance 100 Weight 67.7 kg Intake: Intake, IV Titration 350 Amount Desmopressin Acetate 1 50 mcg In Sodium Chloride 0. 9% 50 ml @ 200 mls/hr IVPB ONCE ONE Rx#: [id number] Dextrose 5% in Water 1, 300 000 ml @ 150 mls/hr IV . Q6H40M [facility] Rx#:[id number] Output: Urine 250 Other: Voiding Method Toilet # Voids 5 1 - Labs CBC & Chem 7: 01/16/20 22:33 01/18/20 06:39 Labs: Abnormal Lab Results - Last 24 Hours (Table) 01/17/20 01/17/20 01/17/20 Range/Units 11:07 17:13 23:15 Sodium 126 L 128 L 128 L (137-145) mmol/L Chloride 96 L (98-107) mmol/L Creatinine 0.49 L (0.52-1.04) mg/dL Glucose (74-99) mg/dL Total Protein (6.3-8.2) g/dL 01/18/20 01/18/20 01/18/20 Range/Units 00:14 02:08 03:41 Sodium 127 L 125 L 125 L (137-145) mmol/L Chloride 96 L (98-107) mmol/L Creatinine 0.45 L (0.52-1.04) mg/dL Glucose 125 H (74-99) mg/dL Total Protein 5.9 L (6.3-8.2) g/dL 01/18/20 Range/Units 06:39 Sodium 122 L (137-145) mmol/L Chloride (98-107) mmol/L Creatinine (0.52-1.04) mg/dL Glucose (74-99) mg/dL Total Protein (6.3-8.2) g/dL Assessment and Plan Plan: Assessment: 1. Hypotonic hypovolemic hyponatremia secondary to vomiting and further wors ened with the use of hydrochlorothiazide and nonsteroidals, improved with normal saline. Patient was given D5W as well as DDAVP for rapid correction. Sodium level 122 this morning. TSH and cortisol level normal. Urine sodium 103 and urine osmolality 457. 2. Hypokalemia from poor intake and diuretics. Improved posterior placement. 3. Hypomagnesemia from poor intake and diuretics. Improved posterior placement. 4. Benign hypertension. Controlled. Plan: Currently off IV fluids. Encouraged oral intake. Repeat sodium level at 3 PM today. Hold hydrochlorothiazide.
--- NOTE | 2020-01-18 14:19 | P.PN ---
Subjective Progress Note Date: 01/18/20 This is a 69-year-old female patient of mine with past medical history of hypertension, hyperlipidemia, hypothyroidism, gastroesophageal reflux disease, chronic pain. Patient presented to the hospital with complaints of nausea and vomiting started yesterday afternoon, patient stated that she was doing some tyler decoration and all of the sudden she felt that she is nauseated and She is also was having some dizziness, despite the fact that she had a bagel with a cream cheese on it, then she started to feel extrely sick with nausea and vomiting without diarrhea She denies any blood in her vomitus. No abdominal pain. No diarrhea or constipation. She denies having any fever or chills. No chest pain or shortness of breath. Patient came into [facility] emergency center. She was afebrile, heart rate 80, blood pressure 168/81, pulse ox 97% on room air. CBC was unremarkable. Sodium was recently at 114, potassium 3.2 chloride 79, CO2 25, BUN 12 and creatinine 0.4. Blood sugar 133. Uric acid 2.6. Phosphorus 2.8, magnesium 1.4. Troponin negative. Liver function tests normal. Urinalysis was 2+ ketones and small amount of blood without signs of infection. Urine osmolality 457 and random urine creatinine 35.2. Lipase 43. Magnesium and potassium were replaced in the emergency center, status post 2 L of IV fluid EKG is sinus rhythm with first- degree block. Patient admitted to the cardiac stepdown unit and consult with nephrology. Patient stated that about 3 weeks ago she did had epidural injection in her back and was recently placed on tramadol 50 mg orally tid along with Celecoxib 200 g orally daily, and that when she started to have issues, so patient was admited for evaluation, while I saw the patient in the ER she did have a temerature and was complaining of sore throat and irritative cough , so I have asked the Nurse to do a COVID-19 Swab for PCR. 01/17: Patient is status post IV fluids of normal saline switched to D5W followed by a dose of DDAVP last night. Sodium this morning is at 122. Patient is being without nausea or vomiting. She has been afebrile, heart rate 66, blood pressure 129/76, pulse ox 90% on room air. Patient has been seen and followed by nephrology. Patient be encouraged oral intake and repeat sodium level this afternoon. Hydrochlorothiazide remains on hold. Objective - Vital Signs Vital signs: Vital Signs Temp 98.5 F 01/18/20 08:00 Pulse 66 01/18/20 08:00 Resp 18 01/18/20 08:00 BP 129/76 01/18/20 08:00 Pulse Ox 98 01/18/20 08:00 Intake & Output 01/17/20 01/18/20 01/18/20 18:59 06:59 18:59 Intake Total 350 Output Total 250 Balance 100 Weight 67.7 kg Intake: Intake, IV Titration 350 Amount Desmopressin Acetate 1 50 mcg In Sodium Chloride 0. 9% 50 ml @ 200 mls/hr IVPB ONCE ONE Rx#: [id number] Dextrose 5% in Water 1, 300 000 ml @ 150 mls/hr IV . Q6H40M [facility] Rx#:[id number] Output: Urine 250 Other: Voiding Method Toilet # Voids 5 1 - Exam Review of Systems Constitutional: Reports fatigue, Reports lethargy, Reports malaise, Reports poor appetite, Denies chills, Denies fever Eyes: denies blurred vision, denies pain Ears, nose, mouth and throat: Denies dysphagia, Denies headache, Denies nasal congestion, Denies nasal discharge, Denies sore throat, Denies vertigo Cardiovascular: Denies chest pain, Denies decreased exercise tolerance, Denies dyspnea on exertion, Denies lightheadedness, Denies shortness of breath, Denies syncope Respiratory: Denies cough, Denies cough with sputum, Denies dyspnea, Denies excessive sputum, Denies hemoptysis Gastrointestinal: Reports early satiety, Reports loss of appetite, Reports nausea, Reports vomiting, Denies abdominal pain, Denies BRBPR, Denies change in bowel habits, Denies constipation, Denies diarrhea, Denies dyspepsia, Denies melena Genitourinary: Denies dysuria, Denies hematuria, Denies urgency, Denies urinary frequency Menstruation: Reports postmenopausal Musculoskeletal: Reports muscle weakness, Denies frequent falls, Denies myalgias Musculoskeletal: absent: ankle pain, ankle stiffness, ankle swelling, elbow pain , elbow stiffness, elbow swelling, foot pain, foot stiffness, foot swelling, hand pain, hand stiffness, hand swelling, hip pain, hip stiffness, hip swelling, knee pain, knee stiffness, knee swelling, shoulder pain, shoulder stiffness, shoulder swelling, wrist pain, wrist stiffness, wrist swelling Integumentary: Denies pruritus, Denies rash, Denies wounds Neurological: Denies change in mentation, Denies change in speech, Denies confusion, Denies numbness, Denies weakness Psychiatric: Reports anxiety, Reports depression, Denies sadness/tearfulness, Denies sleep disturbances, Denies suicidal ideation Endocrine: Reports fatigue, Denies weight change Physical examination: HEENT: Head is atraumatic, normocephalic, pupils were equal round reactive to light and accommodation, extraocular muscle movement intact, mucous membranes of the mouth are somewhat dry. Neck: Supple, no JVD, no carotid bruit. Chest: Decreased breath sounds at bases few rhonchi no extremity wheezes, no chest wall tenderness, no intercostal retractions. Heart: First heart sound is depressed, second heart sounds normal, there is no gallop or murmur. Abdomen: Soft, no abdominal tenderness no rebound or guarding positive bowel sounds Extremities: No pedal edema, dorsalis pedis +1 bilaterally. Neurologic examination: Patient is awake alert and oriented 3, cranial nerves 3-12 are grossly intact, muscle power 4 out of 5 in upper and lower extremities bilaterally. - Labs CBC & Chem 7: 01/16/20 22:33 01/18/20 06:39 Labs: Abnormal Lab Results - Last 24 Hours (Table) 01/17/20 01/17/20 01/18/20 Range/Units 17:13 23:15 00:14 Sodium 128 L 128 L 127 L (137-145) mmol/L Chloride (98-107) mmol/L Creatinine (0.52-1.04) mg/dL Glucose (74-99) mg/dL Total Protein (6.3-8.2) g/dL 01/18/20 01/18/20 01/18/20 Range/Units 02:08 03:41 06:39 Sodium 125 L 125 L 122 L (137-145) mmol/L Chloride 96 L (98-107) mmol/L Creatinine 0.45 L (0.52-1.04) mg/dL Glucose 125 H (74-99) mg/dL Total Protein 5.9 L (6.3-8.2) g/dL Assessment and Plan Assessment: 1. Hypotonic hypovolemic hyponatremia secondary to vomiting, hydrochlorothia zide, nonsteroidals. Patient is status post 2 L of 0.9 IV fluids, switch to D5W and status post DDAVP. Patient admitted to the cardiac stepdown unit. Nephrology consult appreciated. Continue to hold hydrochlorothiazide. Vomiting has resolved and patient tolerating diet. 2. Hypokalemia secondary to poor intake and diuretics, status post replacement. Repeat BMP tomorrow. 3. Hypomagnesemia secondary to poor oral intake and diuretics, status post replacement. Continue to monitor 4. Hypertension. Continue Cozaar 50 mg at bedtime, Toprol-XL 50 mg twice daily. 5. Hyperlipidemia. Continue Lipitor 40 mg at bedtime. 6. Gastroesophageal reflux disease and GI prophylaxis. Continue Protonix 40 mg at bedtime. 7. Hypothyroidism. Continue levothyroxine 50 g daily. 8. Chronic pain. Celebrex on hold. 9. Generalized anxiety disorder. Continue Xanax 0.5 mg daily if needed. 10. DVT prophylaxis. Lovenox subcu daily. Patient is full code. Surgeon plan: Home possibly on the weekend
[2020-01-18] MEDS ORDERED: DEXTROSE 5% IN WATER 1,000 ML IV SCH (17:15)
[2020-01-18] MEDS: ATORVASTATIN 40 MG TAB PO SCH (20:37)
[2020-01-18] MEDS: LOSARTAN 50 MG TAB PO SCH (20:37)
[2020-01-18] MEDS: PANTOPRAZOLE 40 MG TABLET PO SCH (20:37)
[2020-01-19] MEDS: LEVOTHYROXINE 50 MCG TAB PO SCH (06:27)
[2020-01-19 09:12] LABS: African American GFR (CKD) >90 (>60 ml/min/1.73 sqM); Anion Gap 7 mmol/L; Blood Urea Nitrogen 10 mg/dL (7-17); Calcium 9.3 mg/dL (8.4-10.2); Carbon Dioxide 27 mmol/L (22-30); Chloride 98 mmol/L (98-107); Glucose 120 mg/dL (74-99); Non-African American GFR(CKD) >90 (>60 ml/min/1.73 sqM); Sodium 132 mmol/L (137-145)
[2020-01-19] MEDS: METOPROLOL SUCCINATE (ER) 50 MG TAB.ER.24H PO SCH (09:20)
[2020-01-19] MEDS: ENOXAPARIN 40 MG/0.4 ML SYRINGE SQ SCH (09:20)
[2020-01-19 09:31] VITALS: RESP 20
--- NOTE | 2020-01-19 11:41 | P.PN ---
Subjective Patient is seen in follow-up for hyponatremia. Sodium level corrected rapidly initially as she was receiving high rate of normal saline. She was then switched over to D5W and also received a dose of DDAVP to slow defraction. Sodium level 132 this morning. Oral intake is good. No vomiting or diarrhea. Wants to go home. Vital signs are stable. General: The patient appeared well nourished and normally developed. HEENT: Head exam is unremarkable. Neck is without jugular venous distension. LUNGS: Lungs are clear to auscultation and percussion. Breath sounds decreased. HEART: Rate and Rhythm are regular. ABDOMEN: Soft, nontender. EXTREMITITES: No clubbing, cyanosis, or edema. Objective - Vital Signs Vital signs: Vital Signs Temp 98.4 F 01/19/20 11:36 Pulse 64 01/19/20 11:36 Resp 20 01/19/20 11:36 BP 134/72 01/19/20 11:36 Pulse Ox 97 01/19/20 11:36 Intake & Output 01/18/20 01/19/20 01/19/20 18:59 06:59 18:59 Intake Total 720 540 240 Balance 720 540 240 Weight 67.3 kg Intake: Oral 720 540 240 Other: Voiding Method Toilet # Voids 4 3 2 - Labs CBC & Chem 7: 01/16/20 22:33 01/19/20 08:24 Labs: Abnormal Lab Results - Last 24 Hours (Table) 01/18/20 01/18/20 01/19/20 Range/Units 15:32 20:14 08:24 Sodium 129 L 129 L 132 L (137-145) mmol/L Glucose 120 H (74-99) mg/dL Assessment and Plan Plan: Assessment: 1. Hypotonic hypovolemic hyponatremia secondary to vomiting and further worsened with the use of hydrochlorothiazide and nonsteroidals, improved with n ormal saline. Patient was given D5W as well as DDAVP to slow the correction. Sodium level 132 this morning. TSH and cortisol level normal. Urine sodium 103 and urine osmolality 457. 2. Hypokalemia from poor intake and diuretics. Improved post replacement. 3. Hypomagnesemia from poor intake and diuretics. Improved posterior placement. 4. Benign hypertension. Controlled. Plan: Stable for discharge from nephrology standpoint. Avoid use of thiazide diuretics.
[2020-01-19 15:56] VITALS: BP 184/93; PULSE 70; TEMP 97.4
== END 2020-01-19 17:18 | disposition home or self-care (01) | DRG 641 ==
LOC: EC 21:50 → 3SCARD 01-17
PROVIDERS: ADMIT Internal Medicine; ATTEND Internal Medicine
DX: E87.1 Hypo-osmolality and hyponatremia (principal); E03.9 Hypothyroidism, unspecified; E86.1 Hypovolemia; T50.2X5A Adverse effect of carbonic-anhydrase inhibitors, benzothiadiazides and other diuretics, initial encounter; T39.395A Adverse effect of other nonsteroidal anti-inflammatory drugs [NSAID], initial encounter; E87.6 Hypokalemia; E83.42 Hypomagnesemia; Z20.828 Contact with and (suspected) exposure to other viral communicable diseases; I10 Essential (primary) hypertension; E78.5 Hyperlipidemia, unspecified; K21.9 Gastro-esophageal reflux disease without esophagitis; R11.2 Nausea with vomiting, unspecified; R19.7 Diarrhea, unspecified; G89.29 Other chronic pain; F41.1 Generalized anxiety disorder; F41.0 Panic disorder [episodic paroxysmal anxiety]; M19.90 Unspecified osteoarthritis, unspecified site; Z79.890 Hormone replacement therapy; Z79.1 Long term (current) use of non-steroidal anti-inflammatories (NSAID); Z79.899 Other long term (current) drug therapy; Z88.8 Allergy status to other drugs, medicaments and biological substances; Z90.89 Acquired absence of other organs; Z90.49 Acquired absence of other specified parts of digestive tract; Z87.19 Personal history of other diseases of the digestive system; Z86.79 Personal history of other diseases of the circulatory system; Z98.890 Other specified postprocedural states; Z98.891 History of uterine scar from previous surgery; Z87.39 Personal history of other diseases of the musculoskeletal system and connective tissue; Z80.1 Family history of malignant neoplasm of trachea, bronchus and lung; Z82.49 Family history of ischemic heart disease and other diseases of the circulatory system; Z82.5 Family history of asthma and other chronic lower respiratory diseases; Z83.49 Family history of other endocrine, nutritional and metabolic diseases; Z82.62 Family history of osteoporosis
CPT/HCPCS: 36415; 80048; 80053; 81001; 82533; 82570; 83690; 83735; 83930; 83935; 84100; 84295; 84300; 84443; 84484; 84540; 84550; 84560; 85025; 87635; 93005; 96361; 96365; 96372; 96375; 99285

== ENCOUNTER → 2020-03-10 | Outpatient (CLI) | payer MEDICARE ==
--- NOTE | 2020-03-10 17:05 | BD ---
EXAMINATION TYPE: Axial Bone Density DATE OF EXAM: 03/10/2020 COMPARISON: 12/19/2014 CLINICAL HISTORY: Postmenopausal screening Height: 60 IN Weight: 148 LBS FRAX RISK QUESTIONS: History of Fracture in Adulthood: LT FOOT AGE 61 RISK FACTORS HISTORY OF: Family History of Osteoporosis: YES MOTHER AND SISTER Active: YES Diet low in dairy products/other sources of calcium: YES Postmenopausal woman: AGE 59 MEDICATIONS: Thyroid Medications: YES Which medication: Levothyroxine How Lon+ YEARS Osteoporosis Medications: NOT NOW Which medication: Fosamax How Long: APPROX 4 YEARS Additional Medications: VIT D, LEVOTHYROXINE, CALCIUM, BLOOD PRESSURE MEDS, CHOLESTEROL MEDS, EXAM MEASUREMENTS: Bone mineral densitometry was performed using the [employer]. Bone mineral density as measured about the Lumbar spine is: ----- L1-L4(G/cm2): 1.093 T Score Values are as follows: ----- L2: -1.1 ----- L3: 0.1 ----- L4: -0.5 ----- L1-L4: -0.7 Bone mineral density has: Decreased -1.5% since study of: 12/19/2014 Bone mineral density about the R hip (g/cm2): 0.890 Bone mineral density about the L hip (g/cm2): 0.987 T Score values are as follows: -----R Neck: -1.1 -----L Neck: -0.4 -----R Total: -1.2 -----L Total: -0.8 Bone mineral density has: Decreased -1.4% since study of: 12/19/2014 IMPRESSION: Osteopenia (T Score between -2.5 and -1). There is slightly increased risk of fracture and the patient may be considered for treatment. Re-Screen 2-5 years. NOTE: T-SCORE=SD OF THE YOUNG ADULT MEAN.
--- NOTE | 2020-03-11 09:57 | MM ---
Reason for exam: screening (asymptomatic). Last mammogram was performed 1 year and 2 months ago. History: Patient is postmenopausal. Family history of premenopausal breast cancer in paternal aunt at age 40. 2 cyst aspirations of the right breast. Physical Findings: A clinical breast exam by your physician is recommended on an annual basis and results should be correlated with mammographic findings. MG 3D Screening Mammo W/Cad Bilateral CC and MLO view(s) were taken. Prior study comparison: January 06, 2019, bilateral MG 3d screening mammo w/cad. January 03, 2018, bilateral MG 3d screening mammo w/cad. The breast tissue is heterogeneously dense. This may lower the sensitivity of mammography. There is no discrete abnormality. No significant changes when compared with prior studies. ASSESSMENT: Negative, BI-RAD 1 RECOMMENDATION: Routine screening mammogram of both breasts in 1 year.
== END | disposition home or self-care (01) ==
LOC: RADMAMWWP 10:07
PROVIDERS: ATTEND Obstetrics & Gynecology
DX: Z12.31 Encounter for screening mammogram for malignant neoplasm of breast (principal); Z13.820 Encounter for screening for osteoporosis; M85.80 Other specified disorders of bone density and structure, unspecified site; Z78.0 Asymptomatic menopausal state
CPT/HCPCS: 77063; 77067; 77080

== ENCOUNTER → 2020-05-01 | Outpatient (CLI) | payer MEDICARE ==
[2020-05-01 11:20] LABS: Basophils # (A) 0.07 X 10*3/uL (0.00-0.10); Basophils % (A) 1.3 %; Eosinophils # (A) 0.07 X 10*3/uL (0.04-0.35); Eosinophils % (A) 1.3 %; HCT 38.9 % (37.2-46.3); HGB 13.1 g/dL (12.0-15.0); Lymphocytes # (A) 2.37 X 10*3/uL (0.90-5.00); Lymphocytes % (A) 45.5 %; MCH 31.1 pg (27.0-32.0); MCHC 33.7 g/dL (32.0-37.0); MCV 92.4 fL (80.0-97.0); Mean Platelet Volume 10.3 fL (9.5-12.2); Monocytes # (A) 0.55 X 10*3/uL (0.20-1.00); Monocytes % (A) 10.6 %; Neutrophils # (A) 2.14 X 10*3/uL (1.80-7.70); Neutrophils % (A) 41.1 %; Platelet Count 234 X 10*3/uL (140-440); RBC 4.21 X 10*6/uL (4.10-5.20); RDW 13.2 % (11.5-14.5); WBC 5.21 X 10*3/uL (4.50-10.00)
[2020-05-01 12:21] LABS: African American GFR (CKD) 87.8 (60.0-200.0); Albumin 4.6 g/dL (3.80-4.90); Albumin/Globulin Ratio 2.3 (1.60-3.17); Anion Gap 7.9 mmol/L (4.00-12.00); BUN/Creat Ratio 21.25 Ratio (12.00-20.00); Carbon Dioxide 28.1 mmol/L (21.6-31.8); Chol/HDL Ratio 2.9; LDL Cholesterol,Calculated 88.2 mg/dL (0.0-131.0); Magnesium 1.9 mg/dL (1.5-2.4); Non-African American GFR(CKD) 75.8 (60.0-200.0); Potassium 4.3 mmol/L (3.5-5.5); Total Bilirubin 0.7 mg/dL (0.3-1.2); Total Protein 6.6 g/dL (6.2-8.2); VLDL Calculation 29.8 mg/dL (5.00-40.00)
[2020-05-01 12:35] LABS: T4, Free (Free Thyroxine) 1.4 ng/dL (0.80-1.80)
[2020-05-01 17:20] LABS: Hemoglobin A1C 4.6 % (4.0-6.0)
== END | disposition home or self-care (01) ==
LOC: LABWHC1 07:09
PROVIDERS: ATTEND Internal Medicine
DX: I10 Essential (primary) hypertension (principal); E03.9 Hypothyroidism, unspecified; E78.2 Mixed hyperlipidemia; F41.9 Anxiety disorder, unspecified
CPT/HCPCS: 36415; 80053; 80061; 83036; 83735; 84439; 84443; 85025

== ENCOUNTER → 2020-06-24 | Outpatient (CLI) | payer MEDICARE ==
[2020-06-25 00:37] LABS: African American GFR (CKD) 103.2 (60.0-200.0); Anion Gap 11.1 mmol/L (4.00-12.00); BUN/Creat Ratio 21.43 Ratio (12.00-20.00); Calcium 9.5 mg/dL (8.7-10.3); Carbon Dioxide 23.9 mmol/L (21.6-31.8); Potassium 4.3 mmol/L (3.5-5.5)
== END | disposition home or self-care (01) ==
LOC: LABWHC1 10:43
PROVIDERS: ATTEND Nurse Practitioner Family
DX: E87.1 Hypo-osmolality and hyponatremia (principal)
CPT/HCPCS: 36415; 80048; 83930; 83935; 84300

== ENCOUNTER → 2021-03-11 | Outpatient (CLI) | payer MEDICARE ==
--- NOTE | 2021-03-13 09:56 | MM ---
Reason for exam: screening (asymptomatic). Last mammogram was performed 1 year ago. History: Patient is postmenopausal. Family history of premenopausal breast cancer in paternal aunt at age 40. 2 cyst aspirations of the right breast. Physical Findings: A clinical breast exam by your physician is recommended on an annual basis and results should be correlated with mammographic findings. MG 3D Screening Mammo W/Cad Bilateral CC and MLO view(s) were taken. Prior study comparison: March 10, 2020, bilateral MG 3d screening mammo w/cad. January 06, 2019, bilateral MG 3d screening mammo w/cad. There are scattered fibroglandular densities. No significant changes when compared with prior studies. ASSESSMENT: Negative, BI-RAD 1 RECOMMENDATION: Routine screening mammogram of both breasts in 1 year.
== END | disposition home or self-care (01) ==
LOC: RADMAMWWP 08:43
PROVIDERS: ATTEND Obstetrics & Gynecology
DX: Z12.31 Encounter for screening mammogram for malignant neoplasm of breast (principal); Z78.0 Asymptomatic menopausal state; Z80.3 Family history of malignant neoplasm of breast
CPT/HCPCS: 77063; 77067

== ENCOUNTER → 2021-04-09 | Outpatient (CLI) | payer MEDICARE ==
[2021-04-09 15:02] LABS: Basophils # (A) 0.07 X 10*3/uL (0.00-0.10); Basophils % (A) 1.4 %; HCT 39.1 % (37.2-46.3); HGB 12.7 g/dL (12.0-15.0); Immature Grans, Automated 0.2 %; Lymphocytes # (A) 1.97 X 10*3/uL (0.90-5.00); Lymphocytes % (A) 39.6 %; MCH 30.7 pg (27.0-32.0); MCHC 32.5 g/dL (32.0-37.0); MCV 94.4 fL (80.0-97.0); Mean Platelet Volume 10.2 fL (9.5-12.2); Monocytes # (A) 0.59 X 10*3/uL (0.20-1.00); Monocytes % (A) 11.9 %; NRBC Per 100 WBC 0 /100 WBCS (0.0-0.0); Neutrophils # (A) 2.23 X 10*3/uL (1.80-7.70); Neutrophils % (A) 44.9 %; Platelet Count 238 X 10*3/uL (140-440); RBC 4.14 X 10*6/uL (4.10-5.20); RDW 13.1 % (11.5-14.5); WBC 4.97 X 10*3/uL (4.50-10.00)
[2021-04-09 15:27] LABS: ALT 26 U/L (8-44); AST 28 U/L (13-35); African American GFR (CKD) 102.5 (60.0-200.0); Albumin 4.4 g/dL (3.8-4.9); Albumin/Globulin Ratio 1.63 (1.60-3.17); Alkaline Phosphatase 56 U/L (41-126); BUN/Creat Ratio 19.14 Ratio (12.00-20.00); Blood Urea Nitrogen 13.4 mg/dL (9.0-27.0); Calcium 9.5 mg/dL (8.7-10.3); Carbon Dioxide 22.7 mmol/L (20.0-27.5); Chloride 101 mmol/L (96-109); Chol/HDL Ratio 3.26 Ratio; Globulin 2.7 g/dL (1.6-3.3); Glucose 93 mg/dL (70-110); LDL Cholesterol,Calculated 94.5 mg/dL (0.0-131.0); Magnesium 2.1 mg/dL (1.5-2.4); Non-African American GFR(CKD) 88.4 (60.0-200.0); Potassium 4.2 mmol/L (3.5-5.5); Sodium 136 mmol/L (135-145); Total Protein 7.1 g/dL (6.2-8.2)
== END | disposition home or self-care (01) ==
LOC: LABWHC1 06:58
PROVIDERS: ATTEND Internal Medicine
DX: I10 Essential (primary) hypertension (principal); E03.9 Hypothyroidism, unspecified; E78.2 Mixed hyperlipidemia; F41.9 Anxiety disorder, unspecified
CPT/HCPCS: 36415; 80053; 80061; 83036; 83735; 84439; 84443; 85025

== ENCOUNTER → 2021-10-21 | Outpatient (CLI) | payer MEDICARE ==
[2021-10-21 10:28] LABS: Basophils # (A) 0.07 X 10*3/uL (0.00-0.10); Basophils % (A) 1.4 %; Eosinophils # (A) 0.09 X 10*3/uL (0.04-0.35); Eosinophils % (A) 1.9 %; HCT 38.4 % (37.2-46.3); HGB 12.7 g/dL (12.0-15.0); Immature Grans, Automated 0.4 %; Lymphocytes # (A) 2.06 X 10*3/uL (0.90-5.00); Lymphocytes % (A) 42.7 %; MCH 31.5 pg (27.0-32.0); MCHC 33.1 g/dL (32.0-37.0); MCV 95.3 fL (80.0-97.0); Mean Platelet Volume 10.4 fL (9.5-12.2); Monocytes # (A) 0.51 X 10*3/uL (0.20-1.00); Monocytes % (A) 10.6 %; NRBC Per 100 WBC 0 /100 WBCS (0.0-0.0); Neutrophils # (A) 2.08 X 10*3/uL (1.80-7.70); Platelet Count 241 X 10*3/uL (140-440); RBC 4.03 X 10*6/uL (4.10-5.20); RDW 13.1 % (11.5-14.5); WBC 4.83 X 10*3/uL (4.50-10.00)
[2021-10-21 13:23] LABS: Appearance,Urine Clear (Clear); Bilirubin,Urine Negative (Negative); Blood,Urine Trace (Negative); Color,Urine Yellow (Yellow); Ketones,Urine Negative (Negative); Nitrite,Urine Negative (Negative); PH, Urine 7.5 (5.0-8.0); Specific Gravity,Urine 1.012 (1.001-1.030); Urobilinogen,Urine 0.2 (0.2,1.0)
[2021-10-21 13:40] LABS: Bacteria,Urine None Seen /HPF (None Seen)
[2021-10-21 14:37] LABS: ALT 24 U/L (8-44); AST 27 U/L (13-35); African American GFR (CKD) 101.7 (60.0-200.0); Albumin 4.3 g/dL (3.8-4.9); Albumin/Globulin Ratio 1.65 (1.60-3.17); Alkaline Phosphatase 57 U/L (41-126); Blood Urea Nitrogen 14.7 mg/dL (9.0-27.0); Calcium 9.5 mg/dL (8.7-10.3); Carbon Dioxide 25.5 mmol/L (20.0-27.5); Chloride 101 mmol/L (96-109); Chol/HDL Ratio 3.22 Ratio; Globulin 2.6 g/dL (1.6-3.3); Glucose 87 mg/dL (70-110); LDL Cholesterol,Calculated 90.1 mg/dL (0.0-131.0); Magnesium 2.1 mg/dL (1.5-2.4); Non-African American GFR(CKD) 87.8 (60.0-200.0); Potassium 4.1 mmol/L (3.5-5.5); Sodium 138 mmol/L (135-145); Total Protein 6.9 g/dL (6.2-8.2)
== END | disposition home or self-care (01) ==
LOC: LABWHC1 07:02
PROVIDERS: ATTEND Internal Medicine
DX: I10 Essential (primary) hypertension (principal); E03.9 Hypothyroidism, unspecified; E78.2 Mixed hyperlipidemia
CPT/HCPCS: 36415; 80053; 80061; 81001; 83036; 83735; 84439; 84443; 85025

== ENCOUNTER → 2022-03-12 | Outpatient (CLI) | payer MEDICARE ==
--- NOTE | 2022-03-12 10:32 | BD ---
EXAMINATION TYPE: Axial Bone Density DATE OF EXAM: 03/12/2022 COMPARISON: 03/10/2020 CLINICAL HISTORY: 71 years year old Female. ICD-10 CODE: M85.88 OSTEOPENIA Height: 60" Weight: 155.4 FRAX RISK QUESTIONS: Alcohol (3 or more units per day): NO Family History (Parent hip fracture): NO Glucocorticoids (More than 3mos): NO (Ex: prednisone, prednisolone, methylprednisolone, dexamethasone, and hydrocortisone). History of Fracture in Adulthood: YES, LEFT FOOT Secondary Osteoporosis: 1. Type 1 Diabetes: NO 2. Hyperthyroidism: NO 3. Menopause before 45: NO 4. Malnutrition: NO 5. Chronic liver disease: NO Rheumatoid Arthritis: NO Current Tobacco Use: NO RISK FACTORS HISTORY OF: Hip Fracture (Right/Left): NO Spine Fracture: NO History of Wrist Fracture: NO Surgery to Spine/Hip(right/left)/Wrist (right/left): NO Family History of Osteoporosis: YES, MOTHER, SISTER AND BROTHER Active: YES Diet low in dairy products/other sources of calcium: NO Postmenopausal woman: YES Lost more than 2 inches in height since high school: NO Frequent falls: NO Poor Health: NO Hyperparathyroidism: NO Adrenal Insufficiency: NO MEDICATIONS: Prednisone or other steroids: NO How Long: Thyroid Medications: YES Which medication: LEVOTHYROXINE How Lon YEARS Osteoporosis Medications: NO Additional Medications: BLOOD PRESSURE MEDS, CHOLESTEROL MEDS, LOSARTAN POTASSIUM, OMEPRAZOLE, XANAX, SYMBICORT, CALCIUM, MULTIVITAMIN, TURMERIC Additional History: NONE EXAM MEASUREMENTS: Bone mineral densitometry was performed using the [employer] System. Bone mineral density as measured about the Lumbar spine is: ----- L1-L4(G/cm2): 1.112 T Score Values are as follows: ----- L1: -1.5 ----- L2: -1.1 ----- L3: -0.2 ----- L4: -0.1 ----- L1-L4: -0.6 Bone mineral density has: INCREASED 1.7% since study of: 03/10/2020 Bone mineral density about the R hip (g/cm2): 0.916 Bone mineral density about the L hip (g/cm2): 0.980 T Score values are as follows: -----R Neck: -0.4 -----L Neck: -0.9 -----R Total: -0.6 -----L Total: 0.5 Bone mineral density has: INCREASED 0.1% since study of: 03/10/2020 FRAX%s: The graph provided illustrates a 13.3% chance for a major osteoporotic fx and a 1.2% chance f or the hips probability for fx in 10 years time. IMPRESSION: Normal (Values between +1 and -1 indicate normal bone mass). Consider repeating this study in 5 year s or sooner if there is some new clinical indication. NOTE: T-SCORE=SD OF THE YOUNG ADULT MEAN.
--- NOTE | 2022-03-15 08:17 | MM ---
Reason for Exam: Screening (asymptomatic). Last screening mammogram was performed 12 month(s) ago. Patient History: Menarche at age 13. First Full-Term at age 23. Postmenopausal. Cyst Aspiration on the Right side. Cyst Aspiration on the Right side. Paternal aunt had breast cancer, age 40. Risk Values: Puja 5 year model risk: 1.5%. NCI Lifetime model risk: 4.5%. Prior Study Comparison: 01/06/2019 Bilateral Screening Mammogram, [facility]. 03/10/2020 Bilateral Screening Mammogram, [facility]. 03/11/2021 Bilateral Screening Mammogram, [facility]. Tissue Density: There are scattered fibroglandular densities. Findings: Analyzed By CAD. There is no suspicious group of microcalcifications or new suspicious mass in either breast. Benign calcifications within the right breast. Overall Assessment: Benign, BI-RAD 2 Management: Screening Mammogram of both breasts in 1 year. A clinical breast exam by your physician is recommended on an annual basis and results should be correlated with mammographic findings. Electronically signed and approved by: Connor Rowe D.O.
== END | disposition home or self-care (01) ==
LOC: RADMAMWWP 08:04
PROVIDERS: ATTEND Obstetrics & Gynecology
DX: Z12.31 Encounter for screening mammogram for malignant neoplasm of breast (principal); M85.88 Other specified disorders of bone density and structure, other site; Z80.3 Family history of malignant neoplasm of breast
CPT/HCPCS: 77063; 77067; 77080

== ENCOUNTER → 2022-10-26 | Outpatient (CLI) | payer MEDICARE ==
[2022-10-26 08:31] LABS: Appearance,Urine Clear (Clear); Bilirubin,Urine Negative (Negative); Blood,Urine Trace (Negative); Color,Urine Colorless; Glucose,Urine (UA) Negative (Negative); Ketones,Urine Negative (Negative); Leukocyte Esterase,Urine Negative (Negative); Nitrite,Urine Negative (Negative); Protein,Urine Negative (Negative); RBC,Urine <1 /hpf (0-5); Specific Gravity,Urine 1.005 (1.001-1.035); Squamous Epithelial Cell,Urine <1 /hpf (0-4); Urobilinogen,Urine <2.0 mg/dL (<2.0); WBC,Urine 1 /hpf (0-5)
[2022-10-26 11:28] LABS: Basophils # (A) 0.06 X 10*3/uL (0.00-0.10); Basophils % (A) 1.2 %; Eosinophils # (A) 0.11 X 10*3/uL (0.04-0.35); Eosinophils % (A) 2.2 %; HCT 38.1 % (37.2-46.3); HGB 12.3 d/dL (12.0-15.0); Immature Grans, Automated 0 %; Lymphocytes # (A) 2.04 X 10*3/uL (0.90-5.00); Lymphocytes % (A) 40.6 %; MCH 30.3 pg (27.0-32.0); MCHC 32.3 d/dL (32.0-37.0); MCV 93.8 FL (80.0-97.0); Mean Platelet Volume 10.1 FL (9.5-12.2); Monocytes # (A) 0.58 X 10*3/uL (0.20-1.00); Monocytes % (A) 11.6 %; NRBC Per 100 WBC 0 X 10*3/uL (0.00-0.01); Neutrophils # (A) 2.23 X 10*3/uL (1.80-7.70); Neutrophils % (A) 44.4 %; Platelet Count 221 X 10*3/uL (140-440); RBC 4.06 X 10*6/uL (4.10-5.20); RDW 13.2 % (11.5-14.5); WBC 5.02 X 10*3/uL (4.50-10.00)
[2022-10-26 13:27] LABS: ALT 28 U/L (8-44); AST 22 U/L (13-35); Albumin 4.3 d/dL (3.8-4.9); Albumin/Globulin Ratio 1.95 Ratio (1.60-3.17); Alkaline Phosphatase 62 U/L (41-126); BUN/Creat Ratio 21.86 Ratio (12.00-20.00); Blood Urea Nitrogen 15.3 mg/dL (9.0-27.0); Calcium 9.6 mg/dL (8.7-10.3); Carbon Dioxide 25.6 mmol/L (21.6-31.8); Chloride 101 mmol/L (96-109); Chol/HDL Ratio 3.82 Ratio; Globulin 2.2 d/dL (1.6-3.3); Glucose 90 mg/dL (70-110); LDL Cholesterol,Calculated 107.1 mg/dL (0.0-131.0); Potassium 4.5 mmol/L (3.5-5.5); Sodium 136 mmol/L (135-145); Total Bilirubin 0.4 mg/dL (0.3-1.2); Total Protein 6.5 d/dL (6.2-8.2)
== END | disposition home or self-care (01) ==
LOC: LABWHC1 06:58
PROVIDERS: ATTEND Internal Medicine
DX: I10 Essential (primary) hypertension (principal); E03.9 Hypothyroidism, unspecified; E78.2 Mixed hyperlipidemia
CPT/HCPCS: 36415; 80053; 80061; 81001; 83036; 84443; 85025

== ENCOUNTER → 2023-03-14 | Outpatient (CLI) | payer MEDICARE ==
--- NOTE | 2023-03-14 22:43 | MM ---
Reason for Exam: Screening (asymptomatic). Last screening mammogram was performed 12 month(s) ago. Patient History: Menarche at age 13. First Full-Term at age 23. Postmenopausal. Cyst Aspiration on the Right side. Cyst Aspiration on the Right side. Paternal aunt had breast cancer, age 40. Risk Values: Puja 5 year model risk: 1.6%. NCI Lifetime model risk: 4.3%. Prior Study Comparison: 12/27/2016 Bilateral Screening Mammogram, [facility]. 01/03/2018 Bilateral Screening Mammogram, [facility]. 01/06/2019 Bilateral Screening Mammogram, [facility]. 03/10/2020 Bilateral Screening Mammogram, [facility]. 03/11/2021 Bilateral Screening Mammogram, [facility]. 03/12/2022 Bilateral MG 3D screening mammo w/cad, [facility]. Tissue Density: There are scattered fibroglandular densities. Findings: Analyzed By CAD. The pattern is symmetrical. No significant interval change is evident. Couple benign calcifications are within the right breast. No suspicious groups of microcalcifications, spiculated or lobular masses, architectural distortion or other secondary signs of malignancy are mammographically apparent. Overall Assessment: Benign, BI-RAD 2 Management: Screening Mammogram of both breasts in 1 year. A negative mammogram report should not preclude additional follow up of suspicious palpable abnormalities. Patient should continue monthly self breast exam. A clinical breast exam by your physician is recommended on an annual basis and results should be correlated with mammographic findings. Electronically signed and approved by: Javier Martinez D.O. Radiologis
== END | disposition home or self-care (01) ==
LOC: RADMAMWWP 08:16
PROVIDERS: ATTEND Obstetrics & Gynecology
DX: Z12.31 Encounter for screening mammogram for malignant neoplasm of breast (principal); Z80.3 Family history of malignant neoplasm of breast; Z78.0 Asymptomatic menopausal state
CPT/HCPCS: 77063; 77067

== ENCOUNTER → 2023-05-18 | Outpatient (CLI) | payer MEDICARE ==
--- NOTE | 2023-05-18 07:29 | US ---
EXAMINATION TYPE: US abdomen complete DATE OF EXAM: 05/18/2023 COMPARISON: US - 03/05/2014 CLINICAL INDICATION: Female, 72 years old with history of R74.8 ABNORMAL LEVELS OF OTHER SERUM ENZYME S; Hx HTN, Intermittent constipation, and microscopic hematuria. TECHNIQUE: Multiple sonographic images of the abdomen are obtained. FINDINGS: EXAM MEASUREMENTS: Liver Length: 11.4 cm Gallbladder Wall: 0.2 cm CBD: 0.1 cm Spleen: 7.7 cm Right Kidney: 10.5 x 4.2 x 4.5 cm Left Kidney: 9.9 x 5.2 x 4.7 cm CARPET RENOVATOR NOTES: Unremarkable exam Pancreas: wnl Liver: wnl Gallbladder: wnl Evidence for sonographic Hillman's sign: No CBD: wnl Spleen: wnl Right Kidney: wnl Left Kidney: wnl Upper IVC: wnl Abd Aorta: wnl IMPRESSION: 1. Unremarkable abdomen ultrasound
== END | disposition home or self-care (01) ==
LOC: RADUSWWP 06:51
PROVIDERS: ATTEND Internal Medicine
DX: R74.8 Abnormal levels of other serum enzymes (principal); I10 Essential (primary) hypertension; R31.29 Other microscopic hematuria
CPT/HCPCS: 76700

== ENCOUNTER → 2023-08-03 | Outpatient (CLI) | payer MEDICARE ==
--- NOTE | 2023-08-03 08:56 | XR ---
EXAMINATION TYPE: XR cervical spine comp DATE OF EXAM: 08/03/2023 CLINICAL HISTORY: pain COMPARISON: NONE TECHNIQUE: Frontal, lateral, oblique, swimmers, and open mouth view of the cervical spine are obtaine d. FINDINGS: The cervical spine is visualized in its entirety from C1 thru the top of T1 level. It is s atisfactory in alignment without evidence of acute fracture or dislocation. The pre-vertebral soft t issue appears within normal limits. Mild degenerative disc space narrowing at C4-5 and C5-6. Ventral spondylosis. The C1-C2 articulation is unremarkable on the open mouth view. The oblique imag es are within normal limits. IMPRESSION: No acute fracture or dislocation is seen in the cervical spine.ICD 10 NO FRACTURE, INITI AL EVALUATION
== END | disposition home or self-care (01) ==
LOC: RADXRMAIN 07:58
PROVIDERS: ATTEND Internal Medicine
DX: M54.12 Radiculopathy, cervical region (principal)
CPT/HCPCS: 72050

== ENCOUNTER → 2024-03-15 | Outpatient (CLI) | payer MEDICARE ==
--- NOTE | 2024-03-15 08:51 | MM ---
Reason for Exam: Screening (asymptomatic). Last screening mammogram was performed 12 month(s) ago. Patient History: Menarche at age 13. First Full-Term at age 23. Postmenopausal. Cyst Aspiration on the Right side. Cyst Aspiration on the Right side. Paternal aunt had breast cancer, age 40. Risk Values: Puja 5 year model risk: 1.6%. NCI Lifetime model risk: 4.1%. Prior Study Comparison: 03/11/2021 Bilateral Screening Mammogram, [facility]. 03/12/2022 Bilateral MG 3D screening mammo w/cad, [facility]. 03/14/2023 Bilateral MG 3D screening mammo w/cad, [facility]. Tissue Density: There are scattered areas of fibroglandular density. Findings: Analyzed By CAD. Right breast: There is no suspicious group of microcalcifications or new suspicious mass. Benign-appearing calcifications right breast. Left breast: There is no suspicious group of microcalcifications or new suspicious mass. Overall Assessment: Negative, BI-RAD 1 Management: Screening Mammogram of both breasts in [address] [facility] will attempt to contact patient to return for supplemental views and ultrasound if indicated. Patient should continue monthly self-breast exams. A clinical breast exam by your physician is recommended on an annual basis. This exam should not preclude additional follow-up of suspicious palpable abnormalities. Note on Puja scores and lifetime risk: 1. A Puja score greater than 3% is considered moderate risk. If this is the case, consider specialist referral to assess eligibility for a risk reducing agent. 2. If overall lifetime risk for the development of breast cancer is 20% or higher, the patient may qualify for future screening with alternating mammogram and breast MRI. [facility], , 03/15/2024 8:49 AM. Electronically signed and approved by: Uday Lockett DO
== END | disposition home or self-care (01) ==
LOC: RADMAMWWP 08:16
PROVIDERS: ATTEND Internal Medicine
DX: Z12.31 Encounter for screening mammogram for malignant neoplasm of breast (principal); R92.323 Mammographic fibroglandular density, bilateral breasts; R92.1 Mammographic calcification found on diagnostic imaging of breast; Z78.0 Asymptomatic menopausal state; Z80.3 Family history of malignant neoplasm of breast
CPT/HCPCS: 77063; 77067

== ENCOUNTER → 2024-06-07 | Outpatient (CLI) | payer MEDICARE ==
--- NOTE | 2024-06-07 09:05 | US ---
EXAMINATION TYPE: US carotid duplex BILAT DATE OF EXAM: 06/07/2024 COMPARISON: CTA head and neck 10/31/2018 CLINICAL INDICATION: Female, 73 years old with history of I65.23 OCCLUSION AND STENOSIS OF BILATERAL CAROTID; routine/f/u Additional History: .... TECHNIQUE: Grayscale, color Doppler and spectral Doppler evaluation of the bilateral carotid systems and vertebral arteries. Indirect Doppler criteria was utilized. FINDINGS: EXAM MEASUREMENTS: RIGHT: Peak Systolic Velocity (PSV) cm/sec ----- Right CCA: 71.2 ----- Right ICA: 73.4 ----- Right ECA: 70.3 ICA/CCA ratio: 1.0 RIGHT: End Diastole cm/sec ----- Right CCA: 18.4 ----- Right ICA: 20.1 ----- Right ECA: 11.7 LEFT: Peak Systolic Velocity (PSV) cm/sec ----- Left CCA: 70.3 ----- Left ICA: 103 ----- Left ECA: 61.3 ICA/CCA ratio: 1.5 LEFT: End Diastole cm/sec ----- Left CCA: 18.3 ----- Left ICA: 40.9 ----- Left ECA: 8.5 VERTEBRALS (direction of flow): Right Vertebral: Antegrade Left Vertebral: Antegrade Rhythm: Normal WAREHOUSE DISTRIBUTION ASSOCIATE NOTES: no elevated velocities, no significant stenosis or plaque seen bilaterally Color Doppler imaging shows patency with blood flow throughout the carotid artery. Spectral waveforms are within normal limits. IMPRESSION: Right: No hemodynamically significant stenosis. Left: No hemodynamically significant stenosis. Criteria for Assigning % of Stenosis / Diameter reduction (Estimation based on the indirect measurements of the internal carotid artery velocities (ICA PSV). 1. Normal (no stenosis)=ICA PSV < 180 cm/s: ratio < 2.0: ICA EDV<40 cm/s. 2. Less than 50% stenosis=ICA PSV < 180 cm/s: ratio < 2.0: ICA EDV<40 cm/s. 3. 50 to 69% stenosis=ICA PSV of 180 to 230 cm/s: ration 2.0 ? 4.0: ICA EDV 40-100 cm/s. PSV 125-180 cm/sec and ICA/CCA PSV Ratio ? 2.0 is also consistent with 50-69% stenosis 4. Greater than 70% stenosis to near occlusion= ICA PSV > 230 cm/s: ratio > 4.0: ICA EDV > 100 cm/s. 5. Near occlusion= ICA PSV velocities may be low or undetectable: variable ratio and ICA EDV. 6. Total occlusion=unable to detect flow. [facility], , 06/07/2024 9:02 AM
== END | disposition home or self-care (01) ==
LOC: RADUSWWP 08:15
PROVIDERS: ATTEND Internal Medicine
DX: I65.23 Occlusion and stenosis of bilateral carotid arteries (principal)
CPT/HCPCS: 93880

== ENCOUNTER 2024-08-29 02:33 | Emergency (ER) | payer MEDICARE ==
--- NOTE | 2024-08-29 02:58 | ED ---
Arrhythmia/Palpitations HPI - General Chief Complaint: Arrhythmia/Palpitations Stated Complaint: abnormal heart rate Time Seen by Provider: 08/29/24 02:53 Source: patient, RN notes reviewed, old records reviewed Mode of arrival: ambulatory Limitations: no limitations - History of Present Illness Initial Comments: This is a 74-year-old female to the ER today. She presents today for evaluation regards to feels like her heart is racing palpitations racing in her chest difficulty catching her breath and shortness of breath MD Complaint: palpitations, atrial fibrillation -: hour(s) Arrhythmia History: atrial fibrillation Associated Symptoms: denies other symptoms Treatments Prior to Arrival: other (0) - Related Data Home Medications Medication Instructions Recorded Confirmed ALPRAZolam [Xanax] 0.25 mg PO DAILY PRN 07/28/15 01/17/20 Metoprolol Succinate (ER) [Toprol 50 mg PO BID 07/28/15 01/17/20 XL] Omeprazole [PriLOSEC] 20 mg PO HS 07/28/15 01/17/20 Simvastatin [Zocor] 80 mg PO HS 07/28/15 01/17/20 Levothyroxine Sodium [Synthroid] 50 mcg PO DAILY 10/31/18 01/17/20 Celecoxib [CeleBREX] 200 mg PO BID 01/17/20 01/17/20 Losartan Potassium [Cozaar] 50 mg PO HS 01/17/20 01/17/20 traMADol HCL [Ultram] 50 mg PO TID PRN 01/17/20 01/17/20 Allergies Allergy/AdvReac Type Severity Reaction Status Date / Time budesonide [From Symbicort] Allergy Rash/Hives Verified 08/29/24 02:39 formoterol fumarate Allergy Rash/Hives Verified 08/29/24 02:39 [From Symbicort] Review of Systems ROS Statement: Those systems with pertinent positive or pertinent negative responses have been documented in the HPI. ROS Other: All systems not noted in ROS Statement are negative. Past Medical History Past Medical History: GERD/Reflux, Hyperlipidemia, Hypertension, Osteoarthritis (OA), Thyroid Disorder Additional Past Medical History / Comment(s): Herniated disc History of Any Multi-Drug Resistant Organisms: None Reported Past Surgical History: Appendectomy, Section, Heart Catheterization, Orthopedic Surgery, Tonsillectomy Additional Past Surgical History / Comment(s): vein stripping. Heart cath February 2019 Past Anesthesia/Blood Transfusion Reactions: No Reported Reaction Past Psychological History: Anxiety, Panic Disorder Smoking Status: Never smoker Past Alcohol Use History: Daily Past Drug Use History: None Reported - Past Family History Mother Family Medical History: COPD (Mother at the age of 64 from Emphysema and Hyperlipidemia.), Hyperlipidemia, Hypertension Additional Family Medical History / Comment(s): emphysema. osteoporosis Father Family Medical History: Cancer (Father at the age of 74 rom lung cancer.) Brother(s) Family Medical History: Cancer (Patient had 5 brothers , one from ALL at 1+1/2 year old, one of lung cancer at the age of 59 and one of pancraetic cancer at the age of 60,2 living brothers one with PAD and oneis ok.) Sister(s) Family Medical History: COPD (patient has one sister who from COPD.) Daughter(s) Family Medical History: No Reported History (one daughter ok.) Son(s) Family Medical History: No Reported History (one son ok) General Exam Limitations: no limitations General appearance: alert, in no apparent distress Head exam: Present: atraumatic, normocephalic, normal inspection Eye exam: Present: normal appearance, PERRL, EOMI. Absent: scleral icterus, conjunctival injection, periorbital swelling ENT exam: Present: normal exam, mucous membranes moist Neck exam: Present: normal inspection. Absent: tenderness, meningismus, lymphadenopathy Respiratory exam: Present: normal lung sounds bilaterally. Absent: respiratory distress, wheezes, rales, rhonchi, stridor Cardiovascular Exam: Present: regular rate, normal rhythm, normal heart sounds. Absent: systolic murmur, diastolic murmur, rubs, gallop, clicks GI/Abdominal exam: Present: soft, normal bowel sounds. Absent: distended, tenderness, guarding, rebound, rigid Extremities exam: Present: normal inspection, full ROM, normal capillary refill. Absent: tenderness, pedal edema, joint swelling, calf tenderness Back exam: Present: normal inspection Neurological exam: Present: alert, oriented X3, CN II-XII intact Psychiatric exam: Present: normal affect, normal mood Skin exam: Present: warm, dry, intact, normal color. Absent: rash Course Vital Signs 08/29/24 08/29/24 02:37 04:38 Temperature 98.4 F 97.7 F Pulse Rate 78 63 Respiratory 16 17 Rate Blood Pressure 150/81 157/99 O2 Sat by Pulse 99 96 Oximetry - Reevaluation(s) Reevaluation #1: 08/30/24 03:40 Medical records reviewed Reevaluation #2: Patient symptoms improved remains asymptomatic here in the ER Reevaluation #3: Patient informed of results questions answered Reevaluation #4: Was pt. sent in by a medical professional or institution ([facility], COSMETIC ASSEMBLER, urgent care, hospital, or detention...) When possible be specific @ -no Did you speak to anyone other than the patient for history (EMS, parent, family, police, friend...)? What history was obtained from this source @ -no Did you review nursing and triage notes (agree or disagree)? Why? @ -agree Are old charts reviewed (outside hosp., previous admission, EMS record, old EKG, old radiological studies, urgent care reports/EKG's, detention records)? Report findings @ -yes Differential Diagnosis (chest pain, altered mental status, abdominal pain women, abdominal pain men, vaginal bleeding, weakness, fever, dyspnea, syncope, hea dache, dizziness, GI bleed, back pain, seizure, CVA, palpatations, mental health, musculoskeletal)? @ -prior EKG interpreted by me (3pts min.). @ -yes X-rays interpreted by me (1pt min.). @ -yes negative for acute disease CT interpreted by me (1pt min.). @ -no U/S interpreted by me (1pt. min.). @ -no What testing was considered but not performed or refused? (CT, X-rays, U/S, labs)? Why? @ -none What meds were considered but not given or refused? Why? @ -none Did you discuss the management of the patient with other professionals (professionals i.e. [facility], COSMETIC ASSEMBLER, lab, RT, psych nurse, elementary school social worker, communications technician, teacher, chief sales officer, embedded case manager)? Give summary @ -no Was smoking cessation discussed for >3mins.? @ -no Was critical care preformed (if so, how long)? @ -no Were there social determinants of health that impacted care today? How? (Homelessness, low income, unemployed, alcoholism, drug addiction, transportation, low edu. Level, literacy, decrease access to med. care, penitentiary, rehab)? @ -none Was there de-escalation of care discussed even if they declined (Discuss DNR or withdrawal of care, Hospice)? DNR status @ -no What co-morbidities impacted this encounter? (DM, HTN, Smoking, COPD, CAD, Cancer, CVA, ARF, Chemo, Hep., AIDS, mental health diagnosis, sleep apnea, mo rbid obesity)? @ -none Was patient admitted / discharged? Hospital course, mention meds given and r oute, prescriptions, significant lab abnormalities, going to OR and other pertinent info. @ - Undiagnosed new problem with uncertain prognosis? @ -no Drug Therapy requiring intensive monitoring for toxicity (Heparin, Nitro, Insulin, Cardizem)? @ -no Were any procedures done? @ -no Diagnosis/symptom? @ - Acute, or Chronic, or Acute on Chronic? @ -Acute Uncomplicated (without systemic symptoms) or Complicated (systemic symptoms)? @ -Complicated Side effects of treatment? @ -no Exacerbation, Progression, or Severe Exacerbation? @ -exacerbation Poses a threat to life or bodily function? How? (Chest pain, USA, OR, pneumonia, PE, COPD, DKA, ARF, appy, cholecystitis, CVA, Diverticulitis, Homicidal, Suicidal, threat to staff... and all critical care pts) @ -yes Reevaluation #5: Differential Palpitations Ventricular arrhythmias, atrial arrhythmias, myocardial infarction, anemia, thyrotoxicosis, electrolyte imbalance, hypokalemia, pulmonary embolism, pulmona ry disease, drugs, alcohol, anxiety, stress.... This is not meant to be an all-inclusive list. EKG Findings - EKG Comments: EKG Findings:: EKG sinus 67 PA 188 QRS 87 QTc 388 - EKG Results: EKG: interpreted by DANIELLA Medical Decision Making - Medical Decision Making 74 female will be discharged home history of palpitations and anxiety no acute findings here in the ER - Lab Data Result diagrams: 08/29/24 03:10 08/29/24 03:10 Lab Results 08/29/24 08/29/24 08/29/24 Range/Units 03:10 03:10 03:10 WBC 6.75 (4.50-10.00) 10*3/uL RBC 4.35 (4.10-5.20) 10*6/uL Hgb 13.9 (12.0-15.0) g/dL Hct 40.3 (37.2-46.3) % MCV 92.6 (80.0-97.0) fL MCH 32.0 (27.0-32.0) pg MCHC 34.5 (32.0-37.0) g/dL Plt Count 251 (140-440) 10*3/uL MPV 9.3 L (9.5-12.2) fL Immature Gran % (Auto) 0.4 % Neutrophils % 48.0 % Lymphocytes % 35.3 % Monocytes % 13.0 % Eosinophils % 2.4 % Basophils % 0.9 % Immature Gran # 0.03 (0.00-0.04) 10*3/uL Neutrophils # 3.24 (1.80-7.70) 10*3/uL Lymphocytes # 2.38 (0.90-5.00) 10*3/uL Monocytes # 0.88 (0.20-1.00) 10*3/uL Eosinophils # 0.16 (0.04-0.35) 10*3/uL Basophils # 0.06 (0.00-0.10) 10*3/uL PT 10.0 (10.0-12.5) sec INR 0.9 (<1.2) APTT 22.4 (22.0-30.0) sec Sodium 134 L (137-145) mmol/L Potassium 4.6 (3.5-5.1) mmol/L Chloride 98 (98-107) mmol/L Carbon Dioxide 26 (22-30) mmol/L Anion Gap 10 mmol/L BUN 14 (7-17) mg/dL Creatinine 0.52 (0.52-1.04) mg/dL Est GFR (CKD-EPI)AfAm >90 (>60 ml/min/1.73 sqM) Est GFR (CKD-EPI)NonAf >90 (>60 ml/min/1.73 sqM) Glucose 98 (74-99) mg/dL Plasma Lactic Acid Jeff (0.7-2.0) mmol/L Calcium 10.1 (8.4-10.2) mg/dL Phosphorus 3.7 (2.5-4.5) mg/dL Magnesium 1.9 (1.6-2.3) mg/dL Total Bilirubin 0.5 (0.2-1.3) mg/dL AST 44 H (14-36) U/L ALT 51 H (4-34) U/L Alkaline Phosphatase 78 (38-126) U/L Troponin I (0.000-0.034) ng/mL Total Protein 7.1 (6.3-8.2) g/dL Albumin 4.3 (3.5-5.0) g/dL 08/29/24 08/29/24 Range/Units 03:10 03:10 WBC (4.50-10.00) 10*3/uL RBC (4.10-5.20) 10*6/uL Hgb (12.0-15.0) g/dL Hct (37.2-46.3) % MCV (80.0-97.0) fL MCH (27.0-32.0) pg MCHC (32.0-37.0) g/dL Plt Count (140-440) 10*3/uL MPV (9.5-12.2) fL Immature Gran % (Auto) % Neutrophils % % Lymphocytes % % Monocytes % % Eosinophils % % Basophils % % Immature Gran # (0.00-0.04) 10*3/uL Neutrophils # (1.80-7.70) 10*3/uL Lymphocytes # (0.90-5.00) 10*3/uL Monocytes # (0.20-1.00) 10*3/uL Eosinophils # (0.04-0.35) 10*3/uL Basophils # (0.00-0.10) 10*3/uL PT (10.0-12.5) sec INR (<1.2) APTT (22.0-30.0) sec Sodium (137-145) mmol/L Potassium (3.5-5.1) mmol/L Chloride (98-107) mmol/L Carbon Dioxide (22-30) mmol/L Anion Gap mmol/L BUN (7-17) mg/dL Creatinine (0.52-1.04) mg/dL Est GFR (CKD-EPI)AfAm (>60 ml/min/1.73 sqM) Est GFR (CKD-EPI)NonAf (>60 ml/min/1.73 sqM) Glucose (74-99) mg/dL Plasma Lactic Acid Jeff 0.9 (0.7-2.0) mmol/L Calcium (8.4-10.2) mg/dL Phosphorus (2.5-4.5) mg/dL Magnesium (1.6-2.3) mg/dL Total Bilirubin (0.2-1.3) mg/dL AST (14-36) U/L ALT (4-34) U/L Alkaline Phosphatase (38-126) U/L Troponin I <0.012 (0.000-0.034) ng/mL Total Protein (6.3-8.2) g/dL Albumin (3.5-5.0) g/dL - EKG Data -: EKG Interpreted by Me Disposition Clinical Impression: Palpitations Disposition: HOME SELF-CARE Condition: Fair Instructions (If sedation given, give patient instructions): Heart Palpitations (ED) Is patient prescribed a controlled substance at d/c from ED?: No Referrals: William Hirsch MD [Primary Care Provider] - 1-2 days Time of Disposition: 04:00
[2024-08-29 03:44] LABS: Basophils # (A) 0.06 10*3/uL (0.00-0.10); Basophils % (A) 0.9 %; Eosinophils # (A) 0.16 10*3/uL (0.04-0.35); Eosinophils % (A) 2.4 %; HCT 40.3 % (37.2-46.3); HGB 13.9 g/dL (12.0-15.0); Lymphocytes # (A) 2.38 10*3/uL (0.90-5.00); Lymphocytes % (A) 35.3 %; MCH 32.0 pg (27.0-32.0); MCHC 34.5 g/dL (32.0-37.0); MCV 92.6 fL (80.0-97.0); Monocytes # (A) 0.88 10*3/uL (0.20-1.00); Monocytes % (A) 13.0 %; Neutrophils # (A) 3.24 10*3/uL (1.80-7.70); Neutrophils % (A) 48.0 %; Platelet Count 251 10*3/uL (140-440); RBC 4.35 10*6/uL (4.10-5.20); RDW 13.2 % (11.5-14.5); WBC 6.75 10*3/uL (4.50-10.00)
[2024-08-29 03:58] LABS: ALT 51 U/L (4-34); AST 44 U/L (14-36); African American GFR (CKD) >90 (>60 ml/min/1.73 sqM); Albumin 4.3 g/dL (3.5-5.0); Alkaline Phosphatase 78 U/L (38-126); Anion Gap 10 mmol/L; Blood Urea Nitrogen 14 mg/dL (7-17); Calcium 10.1 mg/dL (8.4-10.2); Carbon Dioxide 26 mmol/L (22-30); Chloride 98 mmol/L (98-107); Glucose 98 mg/dL (74-99); Magnesium 1.9 mg/dL (1.6-2.3); Non-African American GFR(CKD) >90 (>60 ml/min/1.73 sqM); Potassium 4.6 mmol/L (3.5-5.1); Sodium 134 mmol/L (137-145); Total Protein 7.1 g/dL (6.3-8.2)
[2024-08-29 04:06] LABS: INR 0.9 (<1.2); Prothrombin Time 10.0 sec (10.0-12.5)
[2024-08-29 04:12] LABS: Partial Thromboplastin Time 22.4 sec (22.0-30.0)
[2024-08-29 04:38] VITALS: BP 157/99; PULSE 63; RESP 17; TEMP 97.7
--- NOTE | 2024-08-29 05:04 | XR ---
EXAM: XR Chest, 2 Views CLINICAL HISTORY: ITS.REASON XR Reason: Weakness TECHNIQUE: Frontal and lateral views of the chest. COMPARISON: X-ray dated 11/17/2018. FINDINGS: Lungs: Question of a consolidative opacity seen within the left lower lingula. Pleural space: Unremarkable. No pneumothorax. Heart: Unremarkable. No cardiomegaly. Mediastinum: Unremarkable. Normal mediastinal contour. Bones/joints: Degenerative changes are seen within the spine and shoulders. No acute fracture. Vasculature: Calcifications overlie the aorta. IMPRESSION: Lingular atelectasis versus pneumonia.
== END 2024-08-29 04:46 | disposition home or self-care (01) ==
LOC: EC 02:33
DX: R00.2 Palpitations (principal); Z88.8 Allergy status to other drugs, medicaments and biological substances
CPT/HCPCS: 36415; 71046; 80053; 83605; 83735; 84100; 84484; 85025; 85610; 85730; 93005; 99285